=== PATIENT | male | born 1940 | race Caucasian/White ===

== ENCOUNTER 2020-06-18 07:03 | Outpatient (CLI) | payer MEDICARE, SELFPAY ==
[2020-06-18 07:46] LABS: Alanine Aminotransferase 21 U/L (4-50); Albumin Level 4.4 g/dL (3.5-5.1); Alkaline Phosphatase 71 U/L (38-126); Anion Gap 10 mmol/L (8-16); Aspartate Amino Transferase 27 U/L (17-59); Bilirubin,Total 0.3 mg/dL (0.2-1.3); Blood Urea Nitrogen 19 mg/dL (9-20); Carbon Dioxide 25 mmol/L (22-30); Chloride 106 mmol/L (98-107); Cholesterol 142 mg/dL (0-200); Estimated Glomerular Filt Rate > 60; Glucose 122 mg/dL (75-110); HDL Direct 80 mg/dL; Sodium 141 mmol/L (137-145); Triglycerides 67 mg/dL (<150)
[2020-06-18 07:53] LABS: Basophils Percent Auto 0.5 % (0.2-1.2); Eosinophils Absolute Auto 0.5 K/mm3 (0-0.3); Eosinophils Percent Auto 5.3 % (0-4.4); Hematocrit 43.2 % (42.0-52.0); Hemoglobin 14.1 g/dL (14.0-18.0); Immature Granulocyte Absolute 0.03 K/mm3 (0.00-0.031); Immature Granulocyte Percent A 0.3 % (0-0.5); Lymphocytes Absolute Auto 1.98 K/mm3 (0.9-3.2); Lymphocytes Percent Auto 22.4 % (18.3-44.2); Mean Corpuscular HGB Conc 32.6 g/dl (32-36); Mean Corpuscular Hemoglobin 34.6 pg (26-34); Mean Corpuscular Volume 105.9 fl (80-100); Mean Platelet Volume 10.8 fl (7.4-10.4); Monocytes Absolute Auto 0.8 K/mm3 (0.1-0.6); Monocytes Percent Auto 8.7 % (2.6-8.5); Neutrophils Absolute Auto 5.5 K/mm3 (1.3-6.7); Neutrophils Percent Auto 62.8 % (45.5-73.1); Platelet Count Result 267 k/mm3 (150-375); Red Blood Count 4.08 M/mm3 (4.6-6.20); Red Cell Distribution Width 13.6 % (11.5-14.5); White Blood Count 8.8 K/mm3 (4.5-10.0)
[2020-06-18 07:57] LABS: LDL Cholesterol Direct 52 mg/dL
== END 2020-06-18 07:04 | disposition home or self-care (01) ==
PROVIDERS: PCP Internal Medicine; Visit Provider Nurse Practitioner
DX: M81.0 Age-related osteoporosis without current pathological fracture (principal); D64.9 Anemia, unspecified; Z13.6 Encounter for screening for cardiovascular disorders; E03.9 Hypothyroidism, unspecified
CPT/HCPCS: 36415; 80053; 80061; 82306; 84443; 85025

== ENCOUNTER 2020-11-20 04:56 | Emergency (ER) | payer MEDICARE, SELFPAY ==
[2020-11-20] VITALS (8 sets, daily range): BP systolic 120–164; BP diastolic 83–98; PULSE 90–108; RESP 16–18; TEMP 36.6; O2SAT 94–100
--- NOTE | ~2020-11-20 | CT_ITS ---
EXAMINATION: CT thoracic lumbar wo con DATE: 11/20/2020 05:44 INDICATION: Back pain TECHNIQUE: Computed tomography (CT) of the thoracic and lumbar spine was performed without intravenou s contrast. The dose-length product was 113.66 mGy-cm. Automated exposure control and iterative recon struction technique were employed. COMPARISON: CT dated 03/03/2019 FINDINGS: There is a chronic appearing superior endplate compression fracture of T11 which has progre ssed since prior study. There is an acute burst fracture of T12 with mild loss of vertebral body heig ht. No retropulsion. Mild paravertebral hematoma. Mild thoracic spondylosis. No other fractures. Ther e is atherosclerosis. There is nonobstructing left renal stone. IMPRESSION: 1. Acute burst fracture of T12 with mild loss of vertebral body height. 2: Chronic appearing superior endplate compression fracture of T11. Reviewed, dictated and finalized at location A. OR SOFTWARE ANALYST
--- NOTE | 2020-11-20 05:03 | ED.BACK ---
HPI - Back Pain/Injury General Chief Complaint: Back Pain/Injury <Gabriel Restrepo MD - Last Filed: 11/20/20 07:01> Stated Complaint: back pain <Gabriel Restrepo MD - Last Filed: 11/20/20 07:01> Time Seen by Provider: 11/20/20 05:03 <Gabriel Restrepo MD - Last Filed: 11/20/20 07:01> History of Present Illness HPI Narrative: Low back pain for the past 2 days. It started when he was moving a bed. He stood up and felt his back tighten up instantly. The pain was tolerable that day, but worse the next morning and he was not able to sleep at all last night due to the pain. He also report urinary frequency. No numbness, weakness, dysuria, incontinence. He was previously on high doses steroids and was told that it had weakened the bones in his spine. <Gabriel Restrepo MD - Last Filed: 11/20/20 07:01> Related Data Home Medications: Home Medications Medication Instructions Recorded Confirmed multivitamin 1 tablet PO DAILY 06/16/20 08/26/20 <Gabriel Restrepo MD - Last Filed: 11/20/20 07:01> Allergies/Adverse Reactions: Allergies Allergy/AdvReac Type Severity Reaction Status Date / Time No Known Allergies Allergy Verified 08/26/20 10:59 <Gabriel Restrepo MD - Last Filed: 11/20/20 07:01> Review of Systems Review of Systems: All systems reviewed & are unremarkable except as noted in HPI and below <Gabriel Restrepo MD - Last Filed: 11/20/20 07:01> Constitutional: Constitutional: Denies chills, Denies fever(s) and Denies weakness <Gabriel Restrepo MD - Last Filed: 11/20/20 07:01> Cardiovascular: Cardiovascular: Denies chest pain <Gabriel Restrepo MD - Last Filed: 11/20/20 07:01> Respiratory: Respiratory: Denies dyspnea <Gabriel Restrepo MD - Last Filed: 11/20/20 07:01> Gastrointestinal: Gastrointestinal: Denies abdominal pain, Denies nausea and Denies vomiting <Gabriel Restrepo MD - Last Filed: 11/20/20 07:01> Genitourinary: Genitourinary: Denies hematuria, Denies dysuria and Reports urinary frequency <Gabriel Restrepo MD - Last Filed: 11/20/20 07:01> Neurologic: Denies dizziness, Denies numbness and Denies weakness <Gabriel Restrepo MD - Last Filed: 11/20/20 07:01> [facility] Past Medical History Medical History: Medical History (Updated 11/20/20 @ 09:56 by Sylvester Chase DO) Arthritis Asthma Chronic diarrhea Closed T12 spinal fracture Colitis Collagenous colitis Constipation Osteoporosis <Gabriel Restrepo MD - Last Filed: 11/20/20 07:01> Surgical History Surgical History: Surgical History Dupuytren's contracture of both hands H/O right knee surgery Hx of appendectomy <Gabriel Restrepo MD - Last Filed: 11/20/20 07:01> Family History Family History: Family History Sibling Cerebrovascular accident Patient's sister is in good health Patient's brother is Diabetes mellitus Mother Patient's mother is Father Patient's father is Family history of aortic aneurysm, Onset Age: 86 <Gabriel Restrepo MD - Last Filed: 11/20/20 07:01> Social History Social History: Social History Smoking status: Former smoker Smoking end date: 11/05/84 Alcohol intake: current <Gabriel Restrepo MD - Last Filed: 11/20/20 07:01> Exam Const: General: no acute distress and alert <Gabriel Restrepo MD - Last Filed: 11/20/20 07:01> Nutritional Appearance: thin <Gabriel Restrepo MD - Last Filed: 11/20/20 07:01> Orientation/consciousness: patient oriented x3 <Gabriel Restrepo MD - Last Filed: 11/20/20 07:01> HENMT: Head: normal to inspection <Gabriel Restrepo MD - Last Filed: 11/20/20 07:01> Neck: Neck: normal visual inspection <Gabriel Restrepo MD - Last Filed:
[2020-11-20] MEDS: diazePAM INJ (*CRX) 10 MG/2 ML SYRINGE 5 MG IM (05:11)
[2020-11-20 06:31] LABS: Add Urine Microscopic? YES; Appearance Urine Clear (Clear); Bilirubin Urine Negative (Negative); Blood Urine 1+ (Negative); Color Urine Yellow (Yellow); Glucose Urine UA Negative (Negative); Ketones Urine 1+ mg/dL (Negative); Leukocyte Esterase Ur Negative LEU/UL (Negative); Nitrate Urine Negative (Negative); Protein Urine Negative (Negative); Specific Grav Ur 1.017 (1.001-1.035); Urobilinogen Urine Negative mg/dL (<2.0); WBC Urine 0-3 /hpf
[2020-11-20] MEDS: MORPHINE SULFATE (*CRX) 2 MG/ML INJ IV PUSH ×2 (06:58→08:57)
--- NOTE | 2020-11-20 07:32 | PC.NURSE ---
Spoke with patients Zarina at [phone], states she wants to come visit her . Advised to wear mask on entry to ED.
== END 2020-11-20 10:21 | disposition home or self-care (01) ==
PROVIDERS: Emergency Medicine; Emergency Provider Emergency Medicine; PCP Internal Medicine
DX: S22.081A Stable burst fracture of T11-T12 vertebra, initial encounter for closed fracture (principal); M19.90 Unspecified osteoarthritis, unspecified site; J45.909 Unspecified asthma, uncomplicated; M81.0 Age-related osteoporosis without current pathological fracture; Z87.891 Personal history of nicotine dependence; X50.0XXA Overexertion from strenuous movement or load, initial encounter
CPT/HCPCS: 72128; 72131; 81001; 96372; 96374; 96376; 99284; J2270; J3360

== ENCOUNTER 2021-01-12 06:58 | Outpatient (CLI) | payer MEDICARE, SELFPAY ==
[2021-01-12 07:30] LABS: Basophils Percent Auto 0.3 % (0.2-1.2); Eosinophils Absolute Auto 0.1 K/mm3 (0-0.3); Hemoglobin 13.3 g/dL (14.0-18.0); Immature Granulocyte Absolute 0.04 K/mm3 (0.00-0.031); Immature Granulocyte Percent A 0.4 % (0-0.5); Lymphocytes Percent Auto 17.2 % (18.3-44.2); Mean Corpuscular HGB Conc 31.7 g/dl (32-36); Mean Corpuscular Hemoglobin 33.2 pg (26-34); Mean Corpuscular Volume 104.7 fl (80-100); Mean Platelet Volume 10.5 fl (7.4-10.4); Monocytes Absolute Auto 0.9 K/mm3 (0.1-0.6); Neutrophils Absolute Auto 7.1 K/mm3 (1.3-6.7); Neutrophils Percent Auto 72.1 % (45.5-73.1); Platelet Count Result 296 k/mm3 (150-375); Red Blood Count 4.01 M/mm3 (4.6-6.20); Red Cell Distribution Width 15.9 % (11.5-14.5); White Blood Count 9.9 K/mm3 (4.5-10.0)
[2021-01-12 07:37] LABS: Hemoglobin A1C 4.8 % (<5.7)
[2021-01-12 07:43] LABS: Potassium 3.9 mmol/L (3.4-5.0)
[2021-01-12 07:44] LABS: Alanine Aminotransferase 13 U/L (4-50); Albumin Level 3.9 g/dL (3.5-5.1); Alkaline Phosphatase 97 U/L (38-126); Anion Gap 7 mmol/L (8-16); Aspartate Amino Transferase 22 U/L (17-59); Bilirubin,Total 0.5 mg/dL (0.2-1.3); Blood Urea Nitrogen 15 mg/dL (9-20); Calcium 8.7 mg/dL (8.4-10.2); Carbon Dioxide 27 mmol/L (22-30); Chloride 105 mmol/L (98-107); Cholesterol 170 mg/dL (0-200); Estimated Glomerular Filt Rate > 60; Glucose 104 mg/dL (75-110); HDL Direct 79 mg/dL; Sodium 139 mmol/L (137-145); Triglycerides 73 mg/dL (<150)
[2021-01-12 07:54] LABS: LDL Cholesterol Direct 67 mg/dL
[2021-01-12 08:06] LABS: Vitamin D 25 Hydroxy 29.6 ng/mL
== END 2021-01-12 06:59 | disposition home or self-care (01) ==
PROVIDERS: PCP Internal Medicine; Visit Provider Internal Medicine
DX: Z13.6 Encounter for screening for cardiovascular disorders (principal); D64.9 Anemia, unspecified; E03.9 Hypothyroidism, unspecified; M81.0 Age-related osteoporosis without current pathological fracture; R73.02 Impaired glucose tolerance (oral)
CPT/HCPCS: 36415; 80053; 80061; 82306; 83036; 84443; 85025

== ENCOUNTER 2021-01-18 10:20 | Outpatient (CLI) | payer MEDICARE, SELFPAY ==
--- NOTE | ~2021-01-18 | CT_ITS ---
EXAMINATION: CT abdomen wo/w con DATE: 01/18/2021 10:49 INDICATION: Renal mass seen on MRI. TECHNIQUE: Computed tomography (CT) of the abdomen was performed without and with 100 mL Omnipaque-35 0 intravenous contrast. Automated exposure control and iterative reconstruction technique were employ ed. The dose-length product was 304.13 mGy-cm. COMPARISON: CT dated 11/16/2018 FINDINGS: Chronic elevation of the left hemidiaphragm. Mild atelectasis chronic mild interstitial lung disease at the dependent periphery of the bilateral lower lobes. Heart size is normal. No pericardial or pleu ral effusion. Atherosclerotic coronary artery calcification. Liver, gallbladder, spleen, pancreas and bilateral adrenal glands are normal. Nonobstructing 3 mm stone at the upper pole of the left kidney and 2 mm stone at the lower pole of the right kidney. 3.6 x 2.3 cm parapelvic cyst at the right renal hilum. Bilateral kidneys are otherwise unremarkable with no suspicious renal lesions identified or h ydronephrosis. The visualized portions of the bowels are unremarkable with no abnormal wall thickenin g or obstruction. No pathologically enlarged abdominal lymphadenopathy. Chronic appearing T11 and T12 burst fractures which are new since the prior study with 50% anterior vertebral body height loss at T11 and negligible retropulsion and 25% anterior vertebral body height loss with 3 mm retropulsion at T12. There has been a prior vertebroplasty at T12. IMPRESSION: 1. Bilateral nonobstructing nephrolithiasis. 2. Unchanged 3.6 cm parapelvic cyst at the right renal hilum. No other renal masses identified. Recom mend correlation with prior outside institution MRI reportedly demonstrating a renal mass which is no t available for comparison. Reviewed, dictated and finalized at location B. IMPRESSION: 1. Bilateral nonobstructing nephrolithiasis. 2. Unchanged 3.6 cm parapelvic cyst at the right renal hilum. No other renal ma sses identified. Recommend correlation with prior outside institution MRI repor tedly demonstrating a renal mass which is not available for comparison.
== END 2021-01-18 10:21 | disposition home or self-care (01) ==
PROVIDERS: PCP Internal Medicine; Visit Provider Internal Medicine
DX: N28.89 Other specified disorders of kidney and ureter (principal); N20.0 Calculus of kidney
CPT/HCPCS: 74170; Q9967

== ENCOUNTER 2021-02-21 07:38 | Inpatient (IN) | payer MEDICARE, SELFPAY ==
[2021-02-21] VITALS (20 sets, daily range): BP systolic 129–172; BP diastolic 74–88; PULSE 89–128; RESP 16–32; TEMP 36.3–36.6; O2SAT 99–100; BMI 13.7
--- NOTE | ~2021-02-21 | XR_ITS ---
XR chest 1V portable DATE: 02/21/2021 09:31 INDICATION: Weakness TECHNIQUE: Portable supine AP chest on 02/21/2021 0919 hours COMPARISON: 12/19/2018 AP and lateral chest FINDINGS: Normal heart size. Aortic arch calcification. Mild aortic tortuosity. No hilar or mediastinal enlargement is evident. Chronic mild elevation left leaf of diaphragm, also evident on 12/19/2018. There is minimal infiltrate or atelectasis in the right and left mid lung field and at the left lung base. The lungs are otherwise clear. Mild bilateral apical capping. Diffuse osteopenia. There is fracture deformity of T11 and T12, with vertebroplasty at T12. IMPRESSION: Minimal infiltrate or atelectasis in the mid lung zones and left lung base Fracture deformities of T11 and T12, vertebroplasty at T12 Diffuse osteopenia Reviewed, dictated and finalized at location A. IMPRESSION: Minimal infiltrate or atelectasis in the mid lung zones and left roxann ng base Fracture deformities of T11 and T12, vertebroplasty at T12 Diffuse osteopenia
--- NOTE | ~2021-02-21 | CT_ITS ---
EXAMINATION: CT abd pelvis lumbar w con DATE: 02/21/2021 09:06 INDICATION: Abdominal pain and weight loss. Recent back surgery. TECHNIQUE: Computed tomography (CT) of the abdomen, pelvis and lumbar spine was performed with 100 mL Omnipaque-350 intravenous contrast. Automated exposure control and iterative reconstruction techniqu e were employed. The dose-length product was 199.71 mGy-cm. COMPARISON: 01/18/2021 FINDINGS: Abdomen and pelvis: Chronic elevation of the left hemidiaphragm. Chronic irregular reticular opacities with honeycombing versus mild emphysema at the dependent periphery of the bilateral lower lobes consistent with chronic interstitial lung disease in either usual interstitial pneumonia (UIP) or nonspecific interstitial p neumonia (NSIP) pattern. Heart size is normal. No pericardial or pleural effusion. Liver, gallbladder , spleen and bilateral adrenal glands are normal. Small parenchymal calcification at the tail of the pancreas consistent with likely sequela of chronic pancreatitis. Nonobstructing 3 mm stone at the upp er pole of the left kidney and 2 mm nonobstructing stone at the lower pole of the right kidney. 3.5 c m right parapelvic cyst. No hydronephrosis. Bladder is normal. Diffuse edematous wall thickening of the colon with hyperemia of the mucosa and vasa recta and some h aziness to the perirectal fat consistent with pancolitis. No pneumatosis or portal venous gas. No bow el obstruction. The appendix is not visualized. No more focal pericecal inflammatory change to sugges t acute appendicitis. No abscess or free intraperitoneal gas or fluid. Multiple normal-sized lymph no lily more notable for number than size in the perirectal region and along the ileocolic chain. There i s scattered calcified atherosclerosis without hemodynamically significant stenosis of the aorta and m any of the other arteries. Lumbar spine: Stable appearance of a T11 compression fracture with 50% anterior vertebral body height loss at T11 a nd of a T12 burst fracture with 25% anterior vertebral body height loss, 3 mm retropulsion and change of prior vertebroplasty. This is also unchanged mild central canal stenosis at the level of the supe rior endplate of T12. Normal alignment of the more caudal lumbar spine. Subtle acute compression frac ture of L1 with shallow concavity along the left side of the superior endplate which is new since 01/03. Remaining lumbar vertebral body heights are normal. Lumbar disc heights are normal. There is mild ballooning of the T11-T12 and T12-L1 disc spaces. There are disc bulges from L1-L2 through L5-S1 resulting in multilevel mild central canal stenosis greatest at L2-L3 and L3-L4. Moderate facet oste oarthritis on the right at L1-L2. Otherwise mild facet osteoarthritis throughout the remainder of the lumbar spine. This along with the disc bulge contribute to multilevel mild lateral neural from steno sis throughout the lumbar spine. IMPRESSION: 1. Pancolitis which could be infectious, inflammatory or less likely ischemic in etiology. 2. L1 superior endplate compression fracture with minimal loss of height on the left which is new sin ce 01/18/2021. 3. Stable appearance of T11 compression fracture and T12 burst fracture, the latter with change of pr ior vertebroplasty. 4. Bilateral nonobstructing nephrolithiasis. Reviewed, dictated and finalized at location A. IMPRESSION: 1. Pancolitis which could be infectious, inflammatory or less likely ischemic i n etiology. 2. L1 superior endplate compression fracture with minimal loss of height on the left which is new since 01/18/2021. 3. Stable appearance of T11 compression fracture and T12 burst fracture, the la tter with change of prior vertebroplasty. 4. Bilateral nonobstructing nephrolit
--- NOTE | 2021-02-21 07:54 | ECG_ITS ---
Measurements Intervals [place] Rate: 107 P: 75 OR: 138 QRS: -7 QRSD: 109 T: 61 QT: 337 QTc: 451 Interpretive Statements SINUS TACHYCARDIA BASELINE ARTIFACT- I, II, III, AVR, AVL, AVF, V1-V6 ABNORMAL ECG Electronically Signed On 02-21-2021 12:13:25 CDT by Maximiliano Nuñez D.O.
--- NOTE | 2021-02-21 07:58 | ED.GENADULT ---
HPI - General Adult General Chief complaint: Weakness Stated complaint: weakness Time Seen by Provider: 02/21/21 07:56 Source: patient and EMS Mode of arrival: EMS Limitations: no limitations History of Present Illness HPI narrative: Patient is a 80-year-old male with a history of chronic diarrhea/colitis, arthritis, anemia, recent kyphoplasty secondary to burst fracture who presents for evaluation of diarrhea. Patient states that he has had acute on chronic worsening of his diarrhea over the past several days, now feeling increasingly weak. He reports he has been able to ambulate without difficulty. He denies any focal numbness or weakness. He states he is unable to walk long distances due to feeling weak. He denies fever, chills, rhinorrhea, loss of sense of taste or smell. No history of Covid vaccination or history of Covid in this patient. No recent sick contacts. Patient follows with Dr. Quezada with GI. No recent falls or injuries. Related Data Home Medications Medication Instructions Recorded Confirmed multivitamin 1 tablet PO DAILY 06/16/20 01/13/21 coenzyme Q10 100 mg tablet 100 mg PO DAILY 01/13/21 01/13/21 Allergies Allergy/AdvReac Type Severity Reaction Status Date / Time No Known Allergies Allergy Verified 02/21/21 07:52 Review of Systems Review of Systems: Narrative: CONSTITUTIONAL: Denies fever, chills, or sweats. EYES: Denies visual changes, redness, or discharge. ENT: Denies rhinorrhea, congestion, sore throat, or otalgia. CARDIOVASCULAR: Denies chest pain, palpitations, or edema. RESPIRATORY: Denies cough or dyspnea. GASTROINTESTINAL: Denies abdominal pain, nausea, vomiting, reports watery diarrhea without blood or mucus GENITOURINARY: Denies dysuria or hematuria. SKIN: Denies rash or itching. MUSCULOSKELETAL: Reports chronic lower back pain without joint pain or myalgia. NEUROLOGIC: Denies headache, numbness, reports feeling diffusely weak PMFSH Past Medical History Medical History Arthritis Asthma Chronic diarrhea Closed T12 spinal fracture Colitis Collagenous colitis Constipation Herpes zoster without complication Osteoporosis Postherpetic neuralgia Surgical History Surgical History Dupuytren's contracture of both hands H/O right knee surgery Hx of appendectomy Family History Family History Sibling Cerebrovascular accident Patient's sister is in good health Patient's brother is Diabetes mellitus Mother Patient's mother is Father Patient's father is Family history of aortic aneurysm, Onset Age: 86 Social History Social History Smoking status: Former smoker Smoking end date: 11/05/84 Alcohol intake: current Exam Narrative: Exam Narrative: GENERAL: Awake, alert, conversant HEAD: Normocephalic, atraumatic. EYES: PERRLA and EOMI. ENT: Nares clear, no rhinorrhea or epistaxis. Mucous membranes dry. NECK: Supple. CHEST: No respiratory distress, breathing even and non labored HEART: Tachycardic rate, sinus rhythm ABDOMEN:Non distended, no severe tenderness throughout, non rigid, no guarding Thorax: Normal, incision site is c/d/i no sutures present EXTREMITIES: Normal range of motion. No edema. SKIN: Thin, warm, dry, no rash. NEURO:No focal deficits. Alert and oriented x3 Course Vital Signs Vital signs: Vital Signs Temperature 36.3 C L 02/21/21 07:36 Pulse Rate 107 H 02/21/21 07:36 Respiratory Rate 21 H 02/21/21 07:36 Blood Pressure 165/88 H 02/21/21 07:36 Pulse Oximetry 99 02/21/21 07:36 Temperature 36.3 C L 02/21/21 07:36 Pulse Rate 93 02/21/21 09:38 Respiratory Rate 19 02/21/21 09:38 Blood Pressure 137/74 02/21/21 09:38 Pulse Oximetry 100 02/21/21 09:38
--- NOTE | 2021-02-21 08:03 | PC.NURSE ---
Pt unable to provide u/a at this time, declined straight cath, states he needs time to try. Given urinal. Fluids infusing.
[2021-02-21] MEDS: SODIUM CHLORIDE 0.9% IV 1,000 ML 999 ML IV CONT (08:04)
[2021-02-21 08:17] LABS: Basophils Absolute Auto 0.1 K/mm3 (0.0-0.1); Basophils Percent Auto 0.5 % (0.2-1.2); Eosinophils Absolute Auto 0.2 K/mm3 (0-0.3); Eosinophils Percent Auto 2.4 % (0-4.4); Hematocrit 38.9 % (42.0-52.0); Hemoglobin 12.9 g/dL (14.0-18.0); Immature Granulocyte Absolute 0.03 K/mm3 (0.00-0.031); Immature Granulocyte Percent A 0.3 % (0-0.5); Lymphocytes Absolute Auto 1.31 K/mm3 (0.9-3.2); Lymphocytes Percent Auto 13.1 % (18.3-44.2); Mean Corpuscular HGB Conc 33.2 g/dl (32-36); Mean Corpuscular Hemoglobin 34.7 pg (26-34); Mean Corpuscular Volume 104.6 fl (80-100); Mean Platelet Volume 10.7 fl (7.4-10.4); Monocytes Absolute Auto 1.4 K/mm3 (0.1-0.6); Monocytes Percent Auto 13.6 % (2.6-8.5); Neutrophils Percent Auto 70.1 % (45.5-73.1); Platelet Count Result 349 k/mm3 (150-375); Red Blood Count 3.72 M/mm3 (4.6-6.20); Red Cell Distribution Width 13.2 % (11.5-14.5)
[2021-02-21 08:26] LABS: Lactic Acid Reflex 1.3 mmol/L (0.7-2.1)
[2021-02-21 08:27] LABS: Alanine Aminotransferase 13 U/L (4-50); Albumin Level 3.7 g/dL (3.5-5.1); Alkaline Phosphatase 124 U/L (38-126); Anion Gap 5 mmol/L (8-16); Aspartate Amino Transferase 23 U/L (17-59); Bilirubin,Total 0.3 mg/dL (0.2-1.3); Blood Urea Nitrogen 20 mg/dL (9-20); Calcium 8.6 mg/dL (8.4-10.2); Carbon Dioxide 29 mmol/L (22-30); Chloride 102 mmol/L (98-107); Estimated CRCL calculation 46 ml/min; Estimated Glomerular Filt Rate > 60; Glucose 101 mg/dL (75-110); Lipase 184 U/L (23-300); Potassium 3.9 mmol/L (3.4-5.0); Sodium 136 mmol/L (137-145)
--- NOTE | 2021-02-21 08:52 | PC.NURSE ---
Pt to CT scan via stretcher.
--- NOTE | 2021-02-21 08:53 | PC.NURSE ---
Pt states he is willing to have straight cath due to unable to urinate. Order placed.
--- NOTE | 2021-02-21 09:20 | PC.NURSE ---
Pt provided clean catch urine, cancelled straight cath.
[2021-02-21 09:36] LABS: Add Urine Microscopic? NO; Appearance Urine Clear (Clear); Bilirubin Urine Negative (Negative); Blood Urine Negative (Negative); Color Urine Straw (Yellow); Glucose Urine UA Negative (Negative); Ketones Urine Negative (Negative); Leukocyte Esterase Ur Negative LEU/UL (Negative); Nitrate Urine Negative (Negative); Protein Urine Negative (Negative); Specific Grav Ur 1.014 (1.001-1.035); Urobilinogen Urine Negative mg/dL (<2.0)
[2021-02-21] MEDS: metroNIDAZOLE 500 MG/ISO 100ML 500 MG/100 ML BAG 100 MG IVPB ×2 (10:04→22:59)
[2021-02-21] MEDS: methylPREDNISolone SOD SUCC 40 MG VIAL IV PUSH ×3 (10:05→21:14)
[2021-02-21 10:16] LABS: Creatine Kinase < 20 U/L (55-170)
--- NOTE | 2021-02-21 10:16 | PC.NURSE ---
1000 - Patient had large liquid bowel movement, reports feeling better after BM. Patient assisted back into bed. Patient updated on plan of care. Call light in reach.
--- NOTE | 2021-02-21 10:54 | PC.NURSE ---
Report called to floor RN, patient to go to room 328.
--- NOTE | 2021-02-21 11:58 | ADMGEN ---
This patient, Anurag Marie, was admitted to 3 [facility] Surg Room 328-01 @ 1110. Patient/family oriented to hospital policies and general routines including ID bracelet, bed and alarms, visiting hours, pain management, procedures, bathroom and other care routines, personal items, smoking policy, room service/diet, and visiting hours. Information on how to activate the Rapid Response Team has been discussed. Patient/Family are encouraged to report perceived risks to care and to ask questions if they do not understand what they are told or what they should do.
--- NOTE | 2021-02-21 14:45 | PM.IMHP ---
H&P: HPI History of Present Illness Date/Time: 02/21/21 14:45 Chief Complaint: Weakness. Narrative: This is a 80-year-old male with collagenous and lymphocytic colitis, anemia, and relatively recent T12 burst fracture status post kyphoplasty who presented to the emergency department earlier today via EMS from home with complaints of weakness. He has chronic diarrhea which has become more frequent over the last several days and it is now to the point where he is just exhausted and weak with difficulties ambulating due to the weakness. He does take Imodium which seems to help here and there but it has not provided much benefit over the last several days. He has not noticed blood or mucus in the stool and denies nausea, vomiting, and abdominal pain. His appetite is just not been good for long time and he drinks Boost but has a difficult time keeping weight on. He has not had fever, chills, or sweats. No cold or flu symptoms. He denies significant cough and shortness of breath. No exposure to those positive for COVID-19. No recent travel, sick contacts, or antibiotic use. Review of Systems Review of Systems: Narrative: Twelve systems were reviewed with pertinent positives and negatives as per HPI. He denies sinus congestion, rhinorrhea, otalgia, and odynophagia. Occasional lightheadedness. No syncope or near syncope. He denies vertigo. No focal weakness or paresthesias. No history of malignancy. He had been having issues with back pain and was found to have a burst fracture for which he underwent vertebroplasty or kyphoplasty several months ago with benefit. Imaging today shows new superior endplate fracture at L1 of which he is asymptomatic. He denies any recent falls and injury. Except as documented, all other systems were reviewed and are negative. [facility] Past Medical History Medical History (Updated 02/21/21 @ 22:30 by Rajwinder Ramirez PA-C) Arthritis Asthma Bilateral nephrolithiasis Nonobstructing on CT dated 02/21/2021. Chronic anemia Chronic diarrhea Closed T12 spinal fracture Status post kyphoplasty. Collagenous colitis Followed by Dr. León. Esophageal stricture Status post dilatation x3. Gastroesophageal reflux disease Hiatal hernia History of Clostridium difficile colitis (~05/2018) Osteoporosis Parapelvic renal cyst Unchanged 3.6 cm parapelvic cyst at the right renal hilum noted on CT dated 02/21/2021 Postherpetic neuralgia Surgical History Surgical History (Updated 02/21/21 @ 14:47 by Rajwinder Ramirez PA-C) Dupuytren's contracture of both hands History of appendectomy History of arthroscopy of right knee History of kyphoplasty Family History Family History Sibling Cerebrovascular accident Patient's sister is in good health Patient's brother is Diabetes mellitus Mother Patient's mother is Father Patient's father is Family history of aortic aneurysm, Onset Age: 86 Social History Social History (Updated 02/21/21 @ 14:48 by Rajwinder Ramirez PA-C) Social History: Surrogate decision maker: Zarina Marie, . Code status: Full code. Smoking packs per day: 2 Smoking cigarettes per day: 40.0 Years smoked: 26 Smoking pack-years: 52.00 Smoking status: Former smoker Tobacco type: cigarettes Smoking end date: 11/05/84 Alcohol intake: former Drinks per week: 0 Alcohol use details: No alcohol since November 2016. Substance use: never Additional living arrangements comments: Patient lives in [place] with his . Additional occupation/education comments: Retired. Gender identity (if verbalized by the patient): Male Spiritual care concerns: No Meds Home Medications and Allergies Home Medications Medication Instructions Recorded Confirmed Type multivitamin 1 tablet PO DAILY 06/16/20 02/21/21 History alendronate 35
[2021-02-21] MEDS: SODIUM CHLORIDE 0.9% IV 1,000 ML 125 ML IV CONT (14:49)
--- NOTE | 2021-02-21 15:18 | PCNSR ---
On 02/21/21, the student,Mercedez Villaseñor, provided care and completed [facility] documentation on this patient. I have reviewed the student's documentation and agree with the findings.
[2021-02-21 15:54] LABS: Immature Reticulocyte Fraction 11.5 % (3.0-15.9); Reticulocyte Hemoglobin Conten 35.4 pg (28.2-35.7); Reticulocyte Percent 1.26 % (0.7-4.3); Reticulocytes Absolute 0.05 B/L (32.2-175.7)
[2021-02-21 16:30] LABS: Iron 43 ug/dL (49-181)
[2021-02-21 16:41] LABS: Percent Iron Saturation 19 % (20-50)
[2021-02-21 17:03] LABS: Thyroid Stimulating Hormone Reflex 0.923 uIU/mL (0.465-4.68)
[2021-02-21 19:04] LABS: SARS-CoV-2 RNA PCR Negative
[2021-02-21] MEDS: ACETAMINOPHEN 325 MG TABLET 650 MG PO (21:29)
[2021-02-22] MEDS: SODIUM CHLORIDE 0.9% IV 1,000 ML 125 ML IV CONT (02:01)
[2021-02-22] MEDS: methylPREDNISolone SOD SUCC 40 MG VIAL IV PUSH ×3 (05:40→21:10)
[2021-02-22] MEDS: metroNIDAZOLE 500 MG/ISO 100ML 500 MG/100 ML BAG 100 MG IVPB ×3 (05:40→21:10)
[2021-02-22 05:54] LABS: Hematocrit 34.8 % (42.0-52.0); Hemoglobin 11.5 g/dL (14.0-18.0); Mean Corpuscular Hemoglobin 33.5 pg (26-34); Mean Corpuscular Volume 101.5 fl (80-100); Mean Platelet Volume 10.3 fl (7.4-10.4); Platelet Count Result 277 k/mm3 (150-375); Red Blood Count 3.43 M/mm3 (4.6-6.20); Red Cell Distribution Width 13.2 % (11.5-14.5); White Blood Count 7.9 K/mm3 (4.5-10.0)
[2021-02-22 06:00] VITALS: BP 160/80; PULSE 100; RESP 18; TEMP 36.6; O2SAT 100
[2021-02-22 06:44] LABS: Anion Gap 5 mmol/L (8-16); Blood Urea Nitrogen 14 mg/dL (9-20); Calcium 7.8 mg/dL (8.4-10.2); Carbon Dioxide 24 mmol/L (22-30); Chloride 106 mmol/L (98-107); Estimated CRCL calculation 65 ml/min; Estimated Glomerular Filt Rate > 60; Glucose 123 mg/dL (75-110); Magnesium 1.7 mg/dL (1.6-2.3); Potassium 3.9 mmol/L (3.4-5.0); Sodium 135 mmol/L (137-145)
[2021-02-22] MEDS: ENOXAPARIN 40 MG/0.4 ML SYRINGE SUB-Q (08:31)
[2021-02-22] MEDS: MULTIVITAMINS THERAPEUTIC TAB (*BKC) 1 TABLET PO (08:31)
[2021-02-22] MEDS: DULoxetine HCL 20 MG CAPSULE.DR PO (08:31)
[2021-02-22 14:13] VITALS: BP 115/61; PULSE 98; RESP 18; TEMP 36.8; O2SAT 96
--- NOTE | 2021-02-22 15:15 | WPDGICN ---
Assessment and Plan Assessment and plan (1) Collagenous colitis: Code(s): K52.831 - Collagenous colitis Status: Acute Assessment and Plan: diagnosed 2018 after failed other medical treatment and he has done quite well with budesonide to the point that we lowered dose CT scan showed colitis, on iv steroids and flagyl, pending stool samples to rule out infection probably will need to increase dose of budesonide to 9mg again consider to repeat colonoscopy based on clinical course (2) Pancolitis: Code(s): K51.00 - Ulcerative (chronic) pancolitis without complications Status: Acute Assessment and Plan: medical treatment (3) Diarrhea: Qualifiers: Diarrhea type: unspecified type Qualified Code(s): R19.7 - Diarrhea, unspecified Code(s): R19.7 - Diarrhea, unspecified Status: Acute (4) Dehydration: Code(s): E86.0 - Dehydration Status: Acute Assessment and Plan: treated (5) Compression fracture: Status: Acute (6) Osteoporosis: Qualifiers: Osteoporosis type: unspecified Presence of current pathological fracture: unspecified Qualified Code(s): M81.0 - Age-related osteoporosis without current pathological fracture Code(s): M81.0 - Age-related osteoporosis without current pathological fracture Status: Acute Assessment and Plan: on treatment GI Consult Note Consult date/time: 02/22/21 15:15 Reason for consult: colitis HPI: Anurag Marie is a 80 year old male with history of osteoporosis on fosamax who I diagnosed with collagenous and lymphocytic colitis/ileitis when I performed colonoscopy 07/2019 because chronic diarrhea despite medical treatment (mesalamine, prednisone, etc), he also was dealing with weight loss and just feeling sick. I started him on 9mg budesonide with significant improvement of diarrhea actually he eventually became constipated and last time I saw him last year, recommended to lower to once a day (3 mg budesonide). He says that November hurt his back and found to have T12 burst fracture status post kyphoplasty at another hospital and since then had again problem with diarrhea, about 1 week ago increased budesonide to 9mg again but still with frequent diarrhea. He came to the emergency department via EMS from home with complaints of weakness. CT scan reviewed and showed pancolitis which could be infectious, inflammatory or less likely ischemic in etiology. L1 superior endplate compression fracture with minimal loss of height on the left which is new since 01/18/2021. Stable appearance of T11 compression fracture and T12 burst fracture, the latter with change of prior vertebroplasty. He was admitted to hospital, started on iv steroids and flagyl. Stool studies still pending. Review of Systems Constitutional: Constitutional: Reports weakness Eyes: Eyes: Denies blurry vision ENT: Reports Normal hearing present Cardiovascular: Cardiovascular: Denies chest pain Respiratory: Respiratory: Denies dyspnea Gastrointestinal: Gastrointestinal: Reports diarrhea Genitourinary: Genitourinary: Denies dysuria Musculoskeletal: Musculoskeletal: Reports back pain Integumentary/Breasts: Skin/Breast: Denies dry skin Neurologic: Reports system reviewed and no additional complaints, except as documented Psychiatric: Psychiatric: Reports no additional psychiatric complaints [facility] Past Medical History Medical History (Updated 02/21/21 @ 22:30 by Rajwinder Ramirez PA-C) Arthritis Asthma Bilateral nephrolithiasis Nonobstructing on CT dated 02/21/2021. Chronic anemia Chronic diarrhea Closed T12 spinal fracture Status post kyphoplasty. Collagenous colitis Followed by Dr. León. Esophageal stricture Status post dilatation x3. Gastroesophageal reflux disease Hiatal hernia History of Clostridium difficile colitis (~05/2018) Osteoporosis Parapelvic renal cyst Unchanged 3.6 cm parapelvic cyst at
--- NOTE | 2021-02-22 15:35 | PM.IMPN ---
Progress Note: A&P Assessment and Plan (1) Pancolitis: Code(s): K51.00 - Ulcerative (chronic) pancolitis without complications Status: Acute Assessment and Plan: He has been started on metronidazole and Solu-Medrol per Dr. León (Gastroenterology). His input is appreciated. (2) Generalized weakness: Code(s): R53.1 - Weakness Status: Acute Assessment and Plan: Secondary to above in addition to generalized deconditioning. PT/OT consulted. (3) Compression fracture: Status: Acute Assessment and Plan: New L1 superior endplate compression fracture noted on imaging today. (4) Chronic anemia: Code(s): D64.9 - Anemia, unspecified Status: Acute Assessment and Plan: Continue to monitor. (5) Parapelvic renal cyst: Code(s): N28.1 - Cyst of kidney, acquired Status: Acute Assessment and Plan: Stable (6) Underweight: Onset Date: 05/21/17 Code(s): R63.6 - Underweight Status: Acute Assessment and Plan: A longstanding issue (7) Person under investigation for COVID-19: Code(s): Z20.822 - Contact with and (suspected) exposure to COVID-19 Status: Ruled-out Assessment and Plan: Is negative Subjective Date/time seen: 02/22/21 15:35 Interval history: 80-year-old male with collagenous and lymphocytic colitis, anemia, and relatively recent T12 burst fracture status post kyphoplasty who presented to the emergency department earlier today via EMS from home with complaints of weakness. COVID negative, seen by GI, pt describes difficulty sleeping Review of Systems Review of Systems: All systems reviewed & are unremarkable except as noted in HPI and below Exam Narrative: Exam Narrative: General: Cachectic-appearing male HEENT: Bitemporal wasting. Neck: Supple. No JVD. Respiratory: Lungs are clear to auscultation bilaterally. Cardiovascular: Regular rate and rhythm with S1-S2. Gastrointestinal: Abdomen is soft and thin appearing Extremities: No cyanosis, clubbing, or edema. Radial and pedal pulses intact. Neurological: Alert. Cranial nerves 2-12 are grossly intact. No gross focal deficits to casual conversation. Psychiatric: Pleasant and cooperative with normal mood and affect. Objective Data Vital Signs Vital Signs: Vital Signs - 24 hr 02/21/21 16:00 02/21/21 22:00 02/22/21 06:00 Temperature 36.3 C L 36.6 C 36.6 C Pulse Rate 106 H 95 100 Respiratory Rate 16 18 18 Blood Pressure 131/86 172/86 H 160/80 H Pulse Oximetry 100 99 100 02/22/21 14:13 Temperature 36.8 C Pulse Rate 98 Respiratory Rate 18 Blood Pressure 115/61 Pulse Oximetry 96 Intake/Output Intake/Output: Intake & Output 02/19/21 02/20/21 02/21/21 02/22/21 23:59 23:59 23:59 23:59 Intake Total 2890 610 Output Total 200 300 Balance 2690 310 Meds/Results Medications: Active Medications Generic Name Dose Route Start Last Admin Trade Name Freq PRN Reason Stop Dose Admin Acetaminophen 650 mg 02/21/21 10:00 02/21/21 21:29 Acetaminophen 325 Mg Tablet PO 650 mg Q4H PRN Administration Mild Pain (1-3) or Fever Duloxetine HCl 20 mg 02/22/21 09:00 02/22/21 08:31 Duloxetine Hcl 20 Mg Capsule.Dr PO 20 mg DAILY LINNEA Administration Enoxaparin Sodium 40 mg 02/22/21 09:00 02/22/21 08:31 Enoxaparin 40 Mg/0.4 Ml Syringe SUB-Q 40 mg DAILY LINNEA Administration Sodium Chloride 1,000 mls @ 75 mls/hr 02/21/21 10:00 02/22/21 08:31 Normal Saline Iv IV CONT 75 mls/hr .[id number] LINNEA Infusion Metronidazole 500 mg in 100 mls @ 100 mls/hr 02/21/21 22:45 02/22/21 13:38 Flagyl 500 Mg/Iso Soln 100 Ml IVPB 100 mls/hr Q8HR LINNEA Administration Methylprednisolone Sodium Succinate 40 mg 02/21/21 14:00 02/22/21 13:36 Methylprednisolone Sod Succ 40 Mg Vial IV PUSH 40 mg Q8HR LINNEA Administration Multivitamins Therapeutic 1
[2021-02-22] MEDS: SODIUM CHLORIDE 0.9% IV 1,000 ML 75 ML IV CONT (17:22)
[2021-02-22 22:00] VITALS: BP 132/72; PULSE 85; RESP 16; TEMP 36.3; O2SAT 99
[2021-02-23] MEDS: metroNIDAZOLE 500 MG/ISO 100ML 500 MG/100 ML BAG 100 MG IVPB ×3 (05:03→19:50)
[2021-02-23] MEDS: methylPREDNISolone SOD SUCC 40 MG VIAL IV PUSH ×3 (05:04→20:35)
[2021-02-23 06:00] VITALS: BP 145/83; PULSE 99; RESP 16; TEMP 36.4; O2SAT 100
[2021-02-23 06:30] LABS: Hematocrit 34.2 % (42.0-52.0); Hemoglobin 11.5 g/dL (14.0-18.0); Mean Corpuscular HGB Conc 33.6 g/dl (32-36); Mean Corpuscular Volume 101.2 fl (80-100); Mean Platelet Volume 10.9 fl (7.4-10.4); Platelet Count Result 294 k/mm3 (150-375); Red Blood Count 3.38 M/mm3 (4.6-6.20); Red Cell Distribution Width 13.2 % (11.5-14.5); White Blood Count 11.5 K/mm3 (4.5-10.0)
[2021-02-23 06:43] LABS: Anion Gap 4 mmol/L (8-16); Blood Urea Nitrogen 20 mg/dL (9-20); Carbon Dioxide 27 mmol/L (22-30); Chloride 106 mmol/L (98-107); Estimated CRCL calculation 65 ml/min; Estimated Glomerular Filt Rate > 60; Glucose 128 mg/dL (75-110); Sodium 137 mmol/L (137-145)
[2021-02-23] MEDS: SODIUM CHLORIDE 0.9% IV 1,000 ML 75 ML IV CONT (08:59)
[2021-02-23] MEDS: ENOXAPARIN 40 MG/0.4 ML SYRINGE SUB-Q (09:01)
[2021-02-23] MEDS: MULTIVITAMINS THERAPEUTIC TAB (*BKC) 1 TABLET PO (09:01)
[2021-02-23] MEDS: DULoxetine HCL 20 MG CAPSULE.DR PO (09:01)
--- NOTE | 2021-02-23 12:23 | PM.IMPN ---
Progress Note: A&P Assessment and Plan (1) Pancolitis: Code(s): K51.00 - Ulcerative (chronic) pancolitis without complications Status: Acute Assessment and Plan: He has been started on metronidazole and Solu-Medrol per Dr. León (Gastroenterology). Pt will need scopes to investigate further later once infection has cleared. (2) Generalized weakness: Code(s): R53.1 - Weakness Status: Acute Assessment and Plan: Secondary to above in addition to generalized deconditioning. PT/OT consulted. (3) Compression fracture: Status: Acute Assessment and Plan: New L1 superior endplate compression fracture noted on imaging today. (4) Chronic anemia: Code(s): D64.9 - Anemia, unspecified Status: Acute Assessment and Plan: Continue to monitor. (5) Parapelvic renal cyst: Code(s): N28.1 - Cyst of kidney, acquired Status: Acute Assessment and Plan: Stable (6) Underweight: Onset Date: 05/21/17 Code(s): R63.6 - Underweight Status: Acute Assessment and Plan: A longstanding issue, malnournishment (7) Person under investigation for COVID-19: Code(s): Z20.822 - Contact with and (suspected) exposure to COVID-19 Status: Ruled-out Assessment and Plan: Is negative Subjective Date/time seen: 02/23/21 12:23 Interval history: 80-year-old male with collagenous and lymphocytic colitis, anemia, and relatively recent T12 burst fracture status post kyphoplasty who presented to the emergency department earlier today via EMS from home with complaints of weakness. COVID negative, seen by GI, pt describes difficulty sleeping. Pt having diarrhea for months denies any vomiting or abdominal pains. Adviced pt to drink more ensures and eat more looks malnourished Review of Systems Review of Systems: All systems reviewed & are unremarkable except as noted in HPI and below Exam Narrative: Exam Narrative: General: Cachectic-appearing male HEENT: Bitemporal wasting. Neck: Supple. No JVD. Respiratory: Lungs are clear to auscultation bilaterally. Cardiovascular: Regular rate and rhythm with S1-S2. Gastrointestinal: Abdomen is soft and thin appearing Extremities: No cyanosis, clubbing, or edema. Radial and pedal pulses intact. Neurological: Alert. Cranial nerves 2-12 are grossly intact. No gross focal deficits to casual conversation. Psychiatric: Pleasant and cooperative with normal mood and affect. Objective Data Vital Signs Vital Signs: Vital Signs - 24 hr 02/22/21 14:13 02/22/21 22:00 02/23/21 06:00 Temperature 36.8 C 36.3 C L 36.4 C Pulse Rate 98 85 99 Respiratory Rate 18 16 16 Blood Pressure 115/61 132/72 145/83 H Pulse Oximetry 96 99 100 Intake/Output Intake/Output: Intake & Output 02/20/21 02/21/21 02/22/21 02/23/21 23:59 23:59 23:59 23:59 Intake Total 2890 3235 1390 Output Total 200 700 500 Balance 2690 2535 890 Meds/Results Medications: Active Medications Generic Name Dose Route Start Last Admin Trade Name Freq PRN Reason Stop Dose Admin Acetaminophen 650 mg 02/21/21 10:00 02/21/21 21:29 Acetaminophen 325 Mg Tablet PO 650 mg Q4H PRN Administration Mild Pain (1-3) or Fever Duloxetine HCl 20 mg 02/22/21 09:00 02/23/21 09:01 Duloxetine Hcl 20 Mg Capsule.Dr PO 20 mg DAILY LINNEA Administration Enoxaparin Sodium 40 mg 02/22/21 09:00 02/23/21 09:01 Enoxaparin 40 Mg/0.4 Ml Syringe SUB-Q 40 mg DAILY LINNEA Administration Sodium Chloride 1,000 mls @ 75 mls/hr 02/21/21 10:00 02/23/21 08:59 Normal Saline Iv IV CONT 75 mls/hr .[id number] LINNEA Administration Metronidazole 500 mg in 100 mls @ 100 mls/hr 02/21/21 22:45 02/23/21 05:03 Flagyl 500 Mg/Iso Soln 100 Ml IVPB 100 mls/hr Q8HR LINNEA Administration Methylprednisolone Sodium Succinate 40 mg 02/21/21 14:00 02/23/21 05:04 Methylprednisol
[2021-02-23 14:00] VITALS: BP 93/56; PULSE 106; RESP 16; TEMP 36.4; O2SAT 99
--- NOTE | 2021-02-23 16:15 | WPDGIPROGNO ---
Progress Note: A&P Assessment and Plan (1) Pancolitis: Code(s): K51.00 - Ulcerative (chronic) pancolitis without complications Status: Acute Assessment and Plan: he is feeling better, eating more and less diarrhea probably he can go home tomorrow with budesonide 9mg daily and flagyl for 7 more days then we could do colonoscopy in 4-6 weeks to reassess (2) Chronic diarrhea: Code(s): K52.9 - Noninfective gastroenteritis and colitis, unspecified Status: Acute (3) Collagenous colitis: Code(s): K52.831 - Collagenous colitis Status: Acute Assessment and Plan: he has known history of collagenous colitis and was using budesonide at home (4) Compression fracture: Status: Acute Assessment and Plan: with osteoporosis (5) Osteoporosis: Qualifiers: Osteoporosis type: unspecified Presence of current pathological fracture: unspecified Qualified Code(s): M81.0 - Age-related osteoporosis without current pathological fracture Code(s): M81.0 - Age-related osteoporosis without current pathological fracture Status: Acute Subjective Date/time seen: 02/23/21 16:15 Interval history: he is eating and slowly feeling better, less diarrhea today Review of Systems Review of Systems: All systems reviewed & are unremarkable except as noted in HPI and below Exam Const: General: comfortable, no acute distress and ill appearing chronically Nutritional Appearance: thin and underweight HENMT: General nose exam: Normal nares present Eyes: General: appearance normal, both eyes and all related structures Neck: Neck: supple Resp: Auscultation: clear to auscultation bilaterally Cardio: Rate: regular rate GI: Inspection: non-distended GI Palp: Yes Soft to palpation and No Guarding due to palpation present (GI) Auscultation: normal bowel sounds Skin: General skin exam: no rashes or lesions noted Neuro: Speech: normal speech Extrem: General: normal to inspection Psych: Mental Status: mental status grossly normal Objective Data Vital Signs Vital Signs: Vital Signs - 24 hr 02/22/21 22:00 02/23/21 06:00 02/23/21 14:00 Temperature 97.4 F L 97.6 F 97.6 F Pulse Rate 85 99 106 H Respiratory Rate 16 16 16 Blood Pressure 132/72 145/83 H 93/56 L Pulse Oximetry 99 100 99 Intake/Output Intake/Output: Intake & Output 02/20/21 02/21/21 02/22/21 02/23/21 23:59 23:59 23:59 23:59 Intake Total 2890 3235 1830 Output Total 200 700 500 Balance 2690 2535 1330 Meds/Results Medications: Active Medications Generic Name Dose Route Start Last Admin Trade Name Freq PRN Reason Stop Dose Admin Acetaminophen 650 mg 02/21/21 10:00 02/21/21 21:29 Acetaminophen 325 Mg Tablet PO 650 mg Q4H PRN Administration Mild Pain (1-3) or Fever Duloxetine HCl 20 mg 02/22/21 09:00 02/23/21 09:01 Duloxetine Hcl 20 Mg Capsule.Dr PO 20 mg DAILY LINNEA Administration Enoxaparin Sodium 40 mg 02/22/21 09:00 02/23/21 09:01 Enoxaparin 40 Mg/0.4 Ml Syringe SUB-Q 40 mg DAILY LINNEA Administration Metronidazole 500 mg in 100 mls @ 100 mls/hr 02/21/21 22:45 02/23/21 15:01 Flagyl 500 Mg/Iso Soln 100 Ml IVPB Infused Q8HR LINNEA Infusion Methylprednisolone Sodium Succinate 40 mg 02/21/21 14:00 02/23/21 14:00 Methylprednisolone Sod Succ 40 Mg Vial IV PUSH 40 mg Q8HR LINNEA Administration Multivitamins Therapeutic 1 tablet 02/22/21 09:00 02/23/21 09:01 Multivitamins Therapeutic Tab (*Bkc) PO 1 tablet DAILY LINNEA Administration Ondansetron HCl 4 mg 02/21/21 10:00 Ondansetron Inj 4 Mg/2 Ml Vial IV PUSH Q4H PRN Nausea Radiology Results: ITS Impressions Miscellaneous CT Procedure 02/21/21 09:14 IMPRESSION: 1. Pancolitis which could be infectious, inflammatory or less likely ischemic in etiology. 2. L1 superior endplate compression fracture with minimal loss of height on the left which is new since
[2021-02-23 22:00] VITALS: BP 125/66; PULSE 70; RESP 16; TEMP 37.1; O2SAT 97
[2021-02-24] MEDS: methylPREDNISolone SOD SUCC 40 MG VIAL IV PUSH ×2 (05:47→13:20)
[2021-02-24] MEDS: metroNIDAZOLE 500 MG/ISO 100ML 500 MG/100 ML BAG 100 MG IVPB ×2 (05:47→13:20)
[2021-02-24 06:00] VITALS: BP 159/81; PULSE 82; RESP 16; TEMP 36.6; O2SAT 98
[2021-02-24] MEDS: ENOXAPARIN 40 MG/0.4 ML SYRINGE SUB-Q (08:18)
[2021-02-24] MEDS: MULTIVITAMINS THERAPEUTIC TAB (*BKC) 1 TABLET PO (08:18)
[2021-02-24] MEDS: DULoxetine HCL 20 MG CAPSULE.DR PO (08:18)
--- NOTE | 2021-02-24 12:39 | PCNFU ---
Nutrition Follow-Up Complete: Inadequate oral food and beverage intake related to colitis as evidence by poor appetite and constant diarrhea. Goal: Adequate intake of 75% or more of meals/supplement Patient has met nutritional goal. Pt current nutrition is Regular diet receiving Ensure Enlive TID providing 220 kcals and 9 g protein. Last recorded weight is 46 kg. No new weight reported. Bowel Motility: Last BM 02/23/21 Labs Reviewed: Hgb 11.5, Hct 34.2, Na 137, K 4.0, GFR 6, BUN 20, Cr .50, Glu 128 Meds Noted: Solu-Medrol, Normal Saline IV, Tylenol PRN, Zofran PRN, Multivitamin, Lovenox, Metronidazole. Additional Notes: Patient is eating 75 to 100% of meals. Patient reports appetite being good. Patient requested 2 Ensure Enlive Vanilla at meals. Follow up in 5 days (03/01)
--- NOTE | 2021-02-24 13:36 | PM.DS ---
DS: Admitting Diagnosis Admitting Diagnosis Admitting Diagnosis: Weakness DS: Discharge Diagnosis Discharge Diagnosis (1) Pancolitis: Code(s): K51.00 - Ulcerative (chronic) pancolitis without complications Status: Acute Assessment and Plan: He has been started on metronidazole and Solu-Medrol per Dr. León (Gastroenterology). Pt will need scopes to investigate further later once infection has cleared. Pt diarrhea is better pt feels ready for discharge. Discharge home, pt has help at home. Pt advised to drink 4 ensures or boosts a day to improve his nutritional status. Pancolitis secondary to UC, follow up with GI in 4-6 weeks for colonscopy. (2) Generalized weakness: Code(s): R53.1 - Weakness Status: Acute Assessment and Plan: Secondary to above in addition to generalized deconditioning. Pt has help at home. (3) Compression fracture: Status: Acute Assessment and Plan: New L1 superior endplate compression fracture noted on imaging today. Pt is on alendronate. (4) Chronic anemia: Code(s): D64.9 - Anemia, unspecified Status: Acute Assessment and Plan: Continue to monitor. (5) Parapelvic renal cyst: Code(s): N28.1 - Cyst of kidney, acquired Status: Acute Assessment and Plan: Stable (6) Underweight: Onset Date: 05/21/17 Code(s): R63.6 - Underweight Status: Acute Assessment and Plan: A longstanding issue, malnournishment (7) Person under investigation for COVID-19: Code(s): Z20.822 - Contact with and (suspected) exposure to COVID-19 Status: Ruled-out Assessment and Plan: Is negative DS: Summary Hospital Course Hospital Course: 80-year-old male with collagenous and lymphocytic colitis, anemia, and relatively recent T12 burst fracture status post kyphoplasty who presented to the emergency department earlier today via EMS from home with complaints of weakness. COVID negative, seen by GI, pt describes difficulty sleeping. Patient diarrhea is settling after, iv flagyl. Advised pt to drink 4 ensures or boosts a day and eat more, as he looks malnourished Time Spent with Patient Time attestation: Total time spent providing and/or coordinating discharge services: Exam Narrative: Exam Narrative: General: Cachectic-appearing male HEENT: Bitemporal wasting. Neck: Supple. No JVD. Respiratory: Lungs are clear to auscultation bilaterally. Cardiovascular: Regular rate and rhythm with S1-S2. Gastrointestinal: Abdomen is soft and thin appearing Extremities: No cyanosis, clubbing, or edema. Radial and pedal pulses intact. Neurological: Alert. Cranial nerves 2-12 are grossly intact. No gross focal deficits to casual conversation. Psychiatric: Pleasant and cooperative with normal mood and affect. DS: Data Data Completed and Pending Labs on day of discharge: Preliminary micro results at discharge 02/21/21 08:01 Blood Culture - Preliminary Blood Coag negative Staphylococcus 02/21/21 08:16 Blood Culture - Preliminary Blood Discharge Plan Discharge Attending physician on discharge: Henrietta Durbin Consulting providers: Paulo León Discharging Clinician: Henrietta Durbin Anticipated Discharge Date/Time: 02/24/21 13:25 Patient Disposition: Home, Self-Care Activity: as tolerated Diet: regular Discharge Instructions: dietary supplements, regular diet 7 Patient Instructions: Antibiotic Form, Malnutrition (GEN), Ulcerative Colitis (GEN), Suicide Prevention (DC), Depression in Older Adults (ED) Stand Alone Forms: General Discharge Information Follow-up/Referrals: Fernando Schultz DO [Primary Care Provider] - Paulo León MD [Physician] - (in 4-6 weeks time ) Discharge Medications: New budesonide 9 mg tablet,delayed and ext.release 9 mg PO DAILY Qty: 60 RF: 0 metronid
--- NOTE | 2021-02-24 13:37 | PCNSR ---
On 02/24/21, the student,Mercedez Villaseñor, provided care and completed [facility] documentation on this patient. I have reviewed the student's documentation and agree with the findings.
[2021-02-24 14:00] VITALS: BP 135/76; PULSE 106; RESP 16; TEMP 36.6; O2SAT 100
== END 2021-02-24 15:07 | disposition home health service (06) | DRG 392 ==
LOC: ANHED 09:54 → ANH3MEDSUR 10:19
PROVIDERS: Physician Assistant; Admitting Provider Family Medicine; Emergency Provider Emergency Medicine; PCP Internal Medicine; Visit Provider Family Medicine
DX: K52.831 Collagenous colitis (principal); E46 Unspecified protein-calorie malnutrition; R64 Cachexia; S22.081A Stable burst fracture of T11-T12 vertebra, initial encounter for closed fracture; S32.010A Wedge compression fracture of first lumbar vertebra, initial encounter for closed fracture; Z68.1 Body mass index [BMI] 19.9 or less, adult; K52.832 Lymphocytic colitis; Z20.822 Contact with and (suspected) exposure to COVID-19; D64.9 Anemia, unspecified; N28.1 Cyst of kidney, acquired; E86.0 Dehydration; M19.90 Unspecified osteoarthritis, unspecified site; J45.909 Unspecified asthma, uncomplicated; M81.0 Age-related osteoporosis without current pathological fracture; Z90.49 Acquired absence of other specified parts of digestive tract; Z87.891 Personal history of nicotine dependence
CPT/HCPCS: 36415; 71045; 72132; 74177; 80048; 80053; 81003; 82550; 82607; 82728; 82746; 83540; 83550; 83605; 83690; 83735; 84443; 85025; 85027; 85046; 87015; 87040; 87045; 87046; 87077; 87186; 87269; 87272; 87427; 93005; 96361; 96365; 96366; 96372; 96375; 96376; 97110; 97161; 97165; 97530; 99285; A9270; C9803; G0378; J1650; J2920; J7030; Q9967; U0003; U0005

== ENCOUNTER 2021-03-03 13:00 | Outpatient (CLI) | payer MEDICARE, SELFPAY | END 2021-03-03 13:01 | disposition home or self-care (01) | LOC: ANHCOVIDVC 13:01 | PROVIDERS: PCP Internal Medicine | DX: Z23 Encounter for immunization (principal) | CPT/HCPCS: 0001A; 91300 ==

== ENCOUNTER 2021-03-24 12:56 | Outpatient (CLI) | payer MEDICARE, SELFPAY | END 2021-03-24 12:57 | disposition home or self-care (01) | LOC: ANHCOVIDVC 12:56 | PROVIDERS: PCP Internal Medicine | DX: Z23 Encounter for immunization (principal) | CPT/HCPCS: 0002A; 91300 ==

== ENCOUNTER 2021-07-29 07:20 | Outpatient (CLI) | payer MEDICARE, SELFPAY ==
[2021-07-29 07:55] LABS: Hematocrit 40.5 % (42.0-52.0); Hemoglobin 12.9 g/dL (14.0-18.0)
== END 2021-07-29 07:21 | disposition home or self-care (01) ==
PROVIDERS: PCP Internal Medicine; Visit Provider Internal Medicine
DX: E53.8 Deficiency of other specified B group vitamins (principal); D64.9 Anemia, unspecified; R79.89 Other specified abnormal findings of blood chemistry
CPT/HCPCS: 36415; 82607; 84443; 85014; 85018

== ENCOUNTER 2022-02-03 10:09 | Outpatient (CLI) | payer MEDICARE, SELFPAY ==
[2022-02-03 11:02] LABS: Basophils Percent Auto 0.3 % (0.2-1.2); Eosinophils Absolute Auto 0.4 K/mm3 (0-0.3); Eosinophils Percent Auto 3.7 % (0-4.4); Hematocrit 43.1 % (42.0-52.0); Hemoglobin 13.8 g/dL (14.0-18.0); Immature Granulocyte Absolute 0.04 K/mm3 (0.00-0.031); Immature Granulocyte Percent A 0.3 % (0-0.5); Lymphocytes Absolute Auto 1.48 K/mm3 (0.9-3.2); Lymphocytes Percent Auto 12.6 % (18.3-44.2); Mean Corpuscular Hemoglobin 34.2 pg (26-34); Mean Corpuscular Volume 106.7 fl (80-100); Mean Platelet Volume 10.3 fl (7.4-10.4); Monocytes Absolute Auto 1.1 K/mm3 (0.1-0.6); Monocytes Percent Auto 9.1 % (2.6-8.5); Neutrophils Absolute Auto 8.7 K/mm3 (1.3-6.7); Platelet Count Result 275 k/mm3 (150-375); Red Blood Count 4.04 M/mm3 (4.6-6.20); Red Cell Distribution Width 13.5 % (11.5-14.5); White Blood Count 11.7 K/mm3 (4.5-10.0)
[2022-02-03 11:11] LABS: Alanine Aminotransferase 16 U/L (4-50); Albumin Level 4.2 g/dL (3.5-5.1); Alkaline Phosphatase 86 U/L (38-126); Anion Gap 7 mmol/L (8-16); Aspartate Amino Transferase 28 U/L (17-59); Bilirubin,Total 0.3 mg/dL (0.2-1.3); Blood Urea Nitrogen 21 mg/dL (9-20); Calcium 9.3 mg/dL (8.4-10.2); Carbon Dioxide 28 mmol/L (22-30); Chloride 103 mmol/L (98-107); Cholesterol 175 mg/dL (0-200); Estimated Glomerular Filt Rate > 60; Glucose 97 mg/dL (65-110); HDL Direct 95 mg/dL; Potassium 4.3 mmol/L (3.4-5.0); Sodium 138 mmol/L (137-145); Triglycerides 68 mg/dL (<150)
[2022-02-03 11:23] LABS: LDL Cholesterol Direct 57 mg/dL
== END 2022-02-03 10:10 | disposition home or self-care (01) ==
LOC: ANHLAB 10:19
PROVIDERS: PCP Internal Medicine; Visit Provider Nurse Practitioner
DX: D64.9 Anemia, unspecified (principal); E03.9 Hypothyroidism, unspecified; K59.00 Constipation, unspecified; E53.8 Deficiency of other specified B group vitamins; Z13.220 Encounter for screening for lipoid disorders; Z13.6 Encounter for screening for cardiovascular disorders
CPT/HCPCS: 36415; 80053; 80061; 82607; 84443; 85025

== ENCOUNTER 2022-04-19 14:20 | Emergency (ER) | payer MEDICARE, SELFPAY ==
--- NOTE | 2022-04-19 14:27 | ED.EYEPROB ---
HPI - Eye Problem General Chief complaint: Eye Problems Stated complaint: riht eye pain Time Seen by Provider: 04/19/22 14:30 Source: patient Mode of arrival: ambulatory Limitations: no limitations History of Present Illness HPI Narrative: 81-year-old male presented for complaint of right eye irritation for 3 to 4 days. States at times he feels like there is something in the eye, he states his daughter looked and did not see anything. He states it feels like an eyelash. Endorses intermittent pain is mild. States they rinsed the eye but then it felt worse. He denies drainage or headache, vision changes or dizziness. chief complaint: eye pain Related Data Allergies Allergy/AdvReac Type Severity Reaction Status Date / Time No Known Allergies Allergy Verified 04/19/22 14:24 Review of Systems Review of Systems: CONSTITUTIONAL: Denies body aches, fever, chills EYES:Endorses redness and pain to right eye; ENT: Denies rhinorrhea, congestion, sore throat, or otalgia. CARDIOVASCULAR: Denies chest pain, palpitations RESPIRATORY: Denies cough or dyspnea. NEUROLOGIC: Denies headache, numbness, tingling, or weakness. All systems reviewed & are unremarkable except as noted in HPI and below PMFSH Past Medical History Medical History Arthritis Asthma Bilateral nephrolithiasis Nonobstructing on CT dated 02/21/2021. Chronic anemia Chronic diarrhea Closed T12 spinal fracture Status post kyphoplasty. Collagenous colitis Followed by Dr. León. Esophageal stricture Status post dilatation x3. Gastroesophageal reflux disease Hiatal hernia History of Clostridium difficile colitis (~05/2018) Osteoporosis Parapelvic renal cyst Unchanged 3.6 cm parapelvic cyst at the right renal hilum noted on CT dated 02/21/2021 Postherpetic neuralgia Surgical History Surgical History Dupuytren's contracture of both hands History of appendectomy History of arthroscopy of right knee History of kyphoplasty Family History Family History Sibling Cerebrovascular accident Patient's sister is in good health Patient's brother is Diabetes mellitus Mother Patient's mother is Father Patient's father is Family history of aortic aneurysm, Onset Age: 86 Social History Social History Social History: Surrogate decision maker: Zarina Marie, . Code status: Full code. Smoking packs per day: 2 Smoking cigarettes per day: 40.0 Years smoked: 26 Smoking pack-years: 52.00 Smoking status: Former smoker Tobacco type: cigarettes Smoking end date: 11/05/84 Alcohol intake: former Drinks per week: 0 Alcohol use details: No alcohol since November 2016. Substance use: never Additional living arrangements comments: Patient lives in [place] with his . Additional occupation/education comments: Retired. Gender identity (if verbalized by the patient): Male Spiritual care concerns: No Comments At time of signature, I have reviewed and agree with nursing past medical, surgical, social and family history unless otherwise noted. Please see nursing chart for further information. There is no relevant family history pertinent to the presenting complaint Exam Narrative: GENERAL: Well-appearing HEAD: Normocephalic, atraumatic. EYES: right conjunctival injection, no eye lid swelling. PERRLA EOMI. Lid eversion showed no FB. No FB or corneal abrasion on granados lamp exam ENT: Mucous membranes pink and moist. No rhinorrhea. TMs normal bilaterally. Throat normal. Uvula midline. CHEST: No respiratory distress. Clear to auscultation. HEART: Regular rate and rhythm. No murmur appreciated. Normal peripheral pulses. NEURO: No focal deficits. Alert a
[2022-04-19 14:28] VITALS: BP 133/104; PULSE 120; RESP 16; TEMP 36.6; O2SAT 100
== END 2022-04-19 14:50 | disposition home or self-care (01) ==
PROVIDERS: Emergency Provider Nurse Practitioner Family; PCP Internal Medicine
DX: H10.31 Unspecified acute conjunctivitis, right eye (principal); Z87.891 Personal history of nicotine dependence; M19.90 Unspecified osteoarthritis, unspecified site; J45.909 Unspecified asthma, uncomplicated; K21.9 Gastro-esophageal reflux disease without esophagitis; M81.0 Age-related osteoporosis without current pathological fracture; Z86.19 Personal history of other infectious and parasitic diseases
CPT/HCPCS: 99213; A9270; G0463

== ENCOUNTER 2022-06-06 08:53 | Outpatient (CLI) | payer MEDICARE, SELFPAY ==
[2022-06-06 09:29] LABS: Basophils Absolute Auto 0.1 K/mm3 (0.0-0.1); Basophils Percent Auto 0.7 % (0.2-1.2); Eosinophils Absolute Auto 0.2 K/mm3 (0-0.3); Eosinophils Percent Auto 1.8 % (0-4.4); Hematocrit 46.9 % (42.0-52.0); Hemoglobin 14.9 g/dL (14.0-18.0); Immature Granulocyte Absolute 0.06 K/mm3 (0.00-0.031); Immature Granulocyte Percent A 0.5 % (0-0.5); Lymphocytes Absolute Auto 2.75 K/mm3 (0.9-3.2); Lymphocytes Percent Auto 24.1 % (18.3-44.2); Mean Corpuscular HGB Conc 31.8 g/dl (32-36); Mean Corpuscular Hemoglobin 33.4 pg (26-34); Mean Corpuscular Volume 105.2 fl (80-100); Mean Platelet Volume 10.8 fl (7.4-10.4); Monocytes Absolute Auto 1.4 K/mm3 (0.1-0.6); Neutrophils Absolute Auto 6.9 K/mm3 (1.3-6.7); Neutrophils Percent Auto 60.9 % (45.5-73.1); Platelet Count Result 313 k/mm3 (150-375); Red Blood Count 4.46 M/mm3 (4.6-6.20); Red Cell Distribution Width 13.9 % (11.5-14.5); White Blood Count 11.4 K/mm3 (4.5-10.0)
[2022-06-06 09:53] LABS: Alanine Aminotransferase 31 U/L (6-50); Albumin Level 4.5 g/dL (3.5-5.1); Alkaline Phosphatase 83 U/L (38-126); Anion Gap 15 mmol/L (8-16); Aspartate Amino Transferase 25 U/L (17-59); Bilirubin,Total 0.8 mg/dL (0.2-1.3); Blood Urea Nitrogen 24 mg/dL (9-20); Carbon Dioxide 25 mmol/L (22-30); Chloride 100 mmol/L (98-107); Estimated Glomerular Filt Rate > 60; Glucose 108 mg/dL (65-110); Sodium 140 mmol/L (137-145)
== END 2022-06-06 08:54 | disposition home or self-care (01) ==
PROVIDERS: PCP Internal Medicine; Visit Provider Internal Medicine
DX: D64.9 Anemia, unspecified (principal); K52.9 Noninfective gastroenteritis and colitis, unspecified; R93.6 Abnormal findings on diagnostic imaging of limbs
CPT/HCPCS: 36415; 80053; 85025

== ENCOUNTER 2022-06-07 08:35 | Outpatient (CLI) | payer MEDICARE, SELFPAY ==
[2022-06-07 09:45] LABS: Appearance Urine Clear (Clear); Bilirubin Urine 1+ (Negative); Blood Urine Negative (Negative); Glucose Urine UA Negative (Negative); Ketones Urine 2+ mg/dL (Negative); Leukocyte Esterase Ur Negative LEU/UL (Negative); Nitrate Urine Negative (Negative); Protein Urine Negative (Negative); Urobilinogen Urine 0.2 mg/dL (<2.0); pH Urine 5.5 (5.0-9.0)
[2022-06-07 09:52] LABS: Mucus Urine Rare /lpf; RBC Urine 0-2 /hpf (0-2); Squamous Epithelial Cell Urine Rare /hpf (Few); WBC Urine 0-3 /hpf
[2022-06-07 09:54] LABS: Add Urine Microscopic? YES; Color Urine Dark Yellow (Yellow)
[2022-06-07 13:50] LABS: Toxigenic C. Diff NEGATIVE (NEGATIVE)
== END 2022-06-07 08:36 | disposition home or self-care (01) ==
PROVIDERS: PCP Internal Medicine; Visit Provider Internal Medicine
DX: R41.0 Disorientation, unspecified (principal); R19.7 Diarrhea, unspecified
CPT/HCPCS: 81001; 87045; 87427; 87493

== ENCOUNTER 2022-06-28 18:19 | Inpatient (IN) | payer MEDICARE, SELFPAY ==
[2022-06-28] VITALS (18 sets, daily range): BP systolic 142–166; BP diastolic 91–108; PULSE 98–129; RESP 14–27; TEMP 36.2–36.6; O2SAT 90–100
--- NOTE | ~2022-06-28 | CT_ITS ---
EXAMINATION: CT chest abdomen pelvis wo con DATE: 07/01/2022 16:18 INDICATION: Leukocytosis. Acute infection of unknown source. TECHNIQUE: Computed tomography (CT) of the chest, abdomen, and pelvis was performed without intraveno us contrast. Automated exposure control and iterative reconstruction technique were employed. The dos e-length product was 330.16 mGy-cm. COMPARISON: CT chest abdomen pelvis dated 12/04/[address] of the abdomen and pelvis dated 02/21/2021 FINDINGS: CHEST CT: Chronic elevation of the left hemidiaphragm. Geographic regions of both lungs predominantly in the lo wer lobes with mild patchy consolidation, groundglass opacities and tiny centrilobular nodules with t ree-in-bud pattern consistent with multifocal pneumonia. Very small left and trace right pleural effu sions. Heart size is normal. Atherosclerotic coronary artery calcifications. No pericardial effusion. Calcified nodule in the right lung and calcified right hilar lymph nodes consistent with old granulo matous disease. Thoracic aorta is normal in caliber. Left thyroid lobe is small with relatively penny ns of the somewhat nodular appearing right thyroid lobe with more clearly defined rim calcified subce ntimeter right thyroid nodule. Chronic T11, T12 and L1 compression fractures, with prior vertebroplas ty at T12. ABDOMEN/PELVIS CT: Liver, gallbladder, spleen, pancreas, bilateral adrenal glands and left kidney are normal. Chronic 4. 0 x 2.4 cm parapelvic cyst at the right renal hilum. No hydronephrosis. There is a small metallic den sity within the lumen of the cecum with configuration on the allergy nurse topogram suggesting a screw measur ing 5 x 6 mm in maximal dimensions. No bowel obstruction. Gas and Fishman catheter within the bladder. No free intraperitoneal gas or fluid. No pathologically enlarged abdominal or pelvic lymphadenopathy. Diffuse osteopenia. Chronic small sclerotic bone island at the right posterior iliac spine. IMPRESSION: 1. Scattered bilateral lung disease most prominent in the lower lobes consistent with multifocal pneu monia. 2. Very small left and trace right pleural effusions. 3. New asymmetric enlargement of the somewhat nodular appearing right thyroid lobe with multiple decr ease in size of the left thyroid lobe. Which suggests possibility of a hyperfunctioning right thyroid nodule. Consider thyroid ultrasound for risk stratification. 4. Small likely ingested and nonobstructing metallic foreign body in the cecum. Reviewed, dictated and finalized at location A. IMPRESSION: 1. Scattered bilateral lung disease most prominent in the lower lobes consisten t with multifocal pneumonia. 2. Very small left and trace right pleural effusions. 3. New asymmetric enlargement of the somewhat nodular appearing right thyroid l obe with multiple decrease in size of the left thyroid lobe. Which suggests pos sibility of a hyperfunctioning right thyroid nodule. Consider thyroid ultrasoun d for risk stratification. 4. Small likely ingested and nonobstructing metallic foreign body in the cecum.
--- NOTE | ~2022-06-28 | XR_ITS ---
EXAMINATION: XR chest 1V portable Exam Date/Time: 06/28/2022 19:48 CDT HISTORY: AMS Comparison: 02/21/2021. RESULT: Lines, tubes, and devices: None. Lungs and pleura: Senescent change. Cardiomediastinal silhouette: Stable. Other: No acute osseous or upper abdominal finding. IMPRESSION: No acute cardiopulmonary process. Reviewed, dictated and finalized at location K.
--- NOTE | ~2022-06-28 | CT_ITS ---
EXAMINATION: CT brain wo con DATE: 06/28/2022 19:38 INDICATION: AMS . TECHNIQUE: Computed tomography (CT) of the head was performed without intravenous contrast. The mA wa s adjusted according to patient size. Iterative reconstruction technique was employed. The dose-lengt h product was 983.67 mGy-cm. COMPARISON: None FINDINGS: No acute intracranial hemorrhage or extra-axial fluid collection. No hydrocephalus, mass, or herniation. No acute ischemic infarct. Unremarkable dural venous sinus attenuation. No acute osseous abnormality. Right maxillary retention cysts or polyps, mild mucosal thickening in the left middle ethmoid air familia ls, trace left mastoid fluid, otherwise the aerated spaces are clear. Moderate atrophy and chronic white matter change. Atherosclerotic intracranial calcification. Bilater al lens replacements. IMPRESSION: No acute intracranial process. Reviewed, dictated and finalized at location K.
--- NOTE | 2022-06-28 18:54 | ECG_ITS ---
Measurements Intervals [place] Rate: 110 P: 75 DC: 132 QRS: 24 QRSD: 102 T: 70 QT: 348 QTc: 471 Interpretive Statements SINUS TACHYCARDIA WITH OCCASIONAL VENTRICULAR PREMATURE COMPLEXES CANNOT RULE OUT INFERIOR MYOCARDIAL INFARCTION, AGE INDETERMINATE ABNORMAL ECG COMPARED TO ECG 02/21/2021 07:43:55 NO SIGNIFICANT CHANGES Electronically Signed On 06-29-2022 15:04:58 CDT by Anurag Sandoval M.D.
[2022-06-28 19:15] LABS: Basophils Absolute Auto 0.1 K/mm3 (0.0-0.1); Basophils Percent Auto 0.4 % (0.2-1.2); Eosinophils Absolute Auto 0.3 K/mm3 (0-0.3); Eosinophils Percent Auto 2.8 % (0-4.4); Hematocrit 46.6 % (42.0-52.0); Hemoglobin 15.2 g/dL (14.0-18.0); Immature Granulocyte Absolute 0.04 K/mm3 (0.00-0.031); Immature Granulocyte Percent A 0.3 % (0-0.5); Lymphocytes Percent Auto 13.8 % (18.3-44.2); Mean Corpuscular HGB Conc 32.6 g/dl (32-36); Mean Corpuscular Hemoglobin 33.7 pg (26-34); Mean Corpuscular Volume 103.3 fl (80-100); Mean Platelet Volume 10.7 fl (7.4-10.4); Monocytes Absolute Auto 0.9 K/mm3 (0.1-0.6); Neutrophils Absolute Auto 8.6 K/mm3 (1.3-6.7); Neutrophils Percent Auto 74.7 % (45.5-73.1); Platelet Count Result 265 k/mm3 (150-375); Red Blood Count 4.51 M/mm3 (4.6-6.20); Red Cell Distribution Width 13.9 % (11.5-14.5); White Blood Count 11.6 K/mm3 (4.5-10.0)
--- NOTE | 2022-06-28 19:23 | ED.GENADULT ---
HPI - General Adult General Chief complaint: Altered Mental Status Stated complaint: AMS, combative Time Seen by Provider: 06/28/22 19:11 History of Present Illness HPI narrative: This is an 82-year-old male presenting ED with altered mental status. Per the patient's he has been on a steady decline for several months. He has good days and he has bad days. frequently does not realize that he is in his own home. Sometimes he has his who all the people have gone which is suspicious for visual hallucinations. He awoke he did not know where he was and was confused. He was more aggressive with his and she was unable to control him as he physically swelling at her. Patient is by his at home. She is starting to feel that she is no longer has the capability of caring for him due to his deteriorating condition.The patient himself is comatose time. He does not know why the hospital. He denies any complaints. Related Data Allergies Allergy/AdvReac Type Severity Reaction Status Date / Time No Known Allergies Allergy Verified 06/05/22 12:40 Review of Systems Review of Systems: CONSTITUTIONAL: Denies night sweats. EYES: No eye pain ENT: Denies rhinorrhea CARDIOVASCULAR: Denies palpitations RESPIRATORY: Denies hemoptysis GASTROINTESTINAL: Denies hematemesis GENITOURINARY: Denies hematuria. SKIN: Denies rash MUSCULOSKELETAL: Denies myalgia. NEUROLOGIC: Denies weakness. PSYCHIATRIC: Denies delusions PMFSH Past Medical History Medical History Arthritis Asthma Bilateral nephrolithiasis Nonobstructing on CT dated 02/21/2021. Chronic anemia Chronic diarrhea Closed T12 spinal fracture Status post kyphoplasty. Collagenous colitis Followed by Dr. León. Esophageal stricture Status post dilatation x3. Gastroesophageal reflux disease Hiatal hernia History of Clostridium difficile colitis (~05/2018) Osteoporosis Parapelvic renal cyst Unchanged 3.6 cm parapelvic cyst at the right renal hilum noted on CT dated 02/21/2021 Postherpetic neuralgia Surgical History Surgical History Dupuytren's contracture of both hands History of appendectomy History of arthroscopy of right knee History of kyphoplasty Family History Family History Sibling Cerebrovascular accident Patient's sister is in good health Patient's brother is Diabetes mellitus Mother Patient's mother is Father Patient's father is Family history of aortic aneurysm, Onset Age: 86 Social History Social History Social History: Surrogate decision maker: Zarina Marie, . Code status: Full code. Smoking packs per day: 2 Smoking cigarettes per day: 40.0 Years smoked: 26 Smoking pack-years: 52.00 Smoking status: Former smoker Tobacco type: cigarettes Smoking end date: 11/05/84 Alcohol intake: former Drinks per week: 0 Alcohol use details: No alcohol since November 2016. Substance use: never Additional living arrangements comments: Patient lives in [place] with his . Additional occupation/education comments: Retired. Gender identity (if verbalized by the patient): Male Spiritual care concerns: No Exam Narrative: APPEARANCE: No apparent distress. Emaciated and cachectic, alert to person and place. Head atraumatic. EYES: PERRLA/EOMI, NOSE: Normal no drainage NECK: Supple, Trachea midline RESPIRATORY: CTAB, No increased work of breathing. CARDIOVASCULAR: S1S2 appreciated ABDOMINAL: Soft, nontender, nondistended, MUSCULOSKELETAl: No obvious deformities NEURO: Alert. Moving 4/4 extremities SKIN:: Warm, dry. Normal color, Stage I sacral decubitus ulcer PSYCHIATRIC: Normal affect Course Vital Signs Vital signs: V
[2022-06-28 19:25] LABS: Alanine Aminotransferase 20 U/L (6-50); Albumin Level 4.1 g/dL (3.5-5.1); Alkaline Phosphatase 77 U/L (38-126); Anion Gap 12 mmol/L (8-16); Aspartate Amino Transferase 28 U/L (17-59); Bilirubin,Total 0.5 mg/dL (0.2-1.3); Blood Urea Nitrogen 14 mg/dL (9-20); Calcium 8.4 mg/dL (8.4-10.2); Carbon Dioxide 26 mmol/L (22-30); Chloride 100 mmol/L (98-107); Estimated Glomerular Filt Rate > 60; Glucose 98 mg/dL (65-110); Potassium 3.6 mmol/L (3.4-5.0); Sodium 138 mmol/L (137-145)
[2022-06-28 19:27] LABS: Partial Thromboplastin Time 26.7 SECONDS (22.3-36.8)
[2022-06-28] MEDS: SODIUM CHLORIDE 0.9% IV 1,000 ML 999 ML IV CONT (19:41)
[2022-06-28 20:09] LABS: Lipase 19 U/L (23-300)
[2022-06-28 20:10] LABS: Lactic Acid Reflex 1.4 mmol/L (0.7-2.0)
[2022-06-28 20:25] LABS: Appearance Urine Clear (Clear); Bilirubin Urine Negative (Negative); Blood Urine Negative (Negative); Color Urine Yellow (Yellow); Glucose Urine UA Negative (Negative); Ketones Urine 2+ mg/dL (Negative); Leukocyte Esterase Ur Negative LEU/UL (Negative); Nitrate Urine Negative (Negative); Protein Urine Negative (Negative); Specific Grav Ur 1.015 (1.001-1.035); Urobilinogen Urine 0.2 mg/dL (<2.0); pH Urine 5.5 (5.0-9.0)
--- NOTE | 2022-06-28 20:29 | PM.IMHP ---
H&P: HPI History of Present Illness Date/Time: 06/28/22 20:29 Chief Complaint: confusion Narrative: this is an 82-year-old male with past medical history significant for gastroesophageal reflux disease, esophageal stricture,collagenous colitis, chronic diarrhea, chronic anemia, osteoporosis. patient was brought to the emergency room for evaluation due to 's concerns for the patient's confusion and overall decline in the last several months also decreased oral intake. Patient confused and hallucinating at times at home. At the time of my visit patient denied any concerns he states that he does not need to be in the hospital that he does not know why his here, that he is used to eating very little and his always been small. Patient knows that he is in [facility] in the town of [place]. He repeated several times that he worked for [employer] in [place] location. Denies any pain, any nausea, any vomiting, any diarrhea, states that he has been his usual state of health. Review of Systems Review of Systems: ROS unobtainable: Yes unobtainable due to medical condition ( Dementia) [facility] Past Medical History Medical History Arthritis Asthma Bilateral nephrolithiasis Nonobstructing on CT dated 02/21/2021. Chronic anemia Chronic diarrhea Closed T12 spinal fracture Status post kyphoplasty. Collagenous colitis Followed by Dr. León. Esophageal stricture Status post dilatation x3. Gastroesophageal reflux disease Hiatal hernia History of Clostridium difficile colitis (~05/2018) Osteoporosis Parapelvic renal cyst Unchanged 3.6 cm parapelvic cyst at the right renal hilum noted on CT dated 02/21/2021 Postherpetic neuralgia Surgical History Surgical History Dupuytren's contracture of both hands History of appendectomy History of arthroscopy of right knee History of kyphoplasty Family History Family History Sibling Cerebrovascular accident Patient's sister is in good health Patient's brother is Diabetes mellitus Mother Patient's mother is Father Patient's father is Family history of aortic aneurysm, Onset Age: 86 Social History Social History Social History: Surrogate decision maker: Zarina Marie, . Code status: Full code. Smoking packs per day: 2 Smoking cigarettes per day: 40.0 Years smoked: 26 Smoking pack-years: 52.00 Smoking status: Former smoker Alcohol intake: current Drinks per week: 5 Alcohol use details: No alcohol since November 2016. Substance use: never Additional living arrangements comments: Patient lives in [place] with his . Additional occupation/education comments: Retired. Gender identity (if verbalized by the patient): Male Spiritual care concerns: No Meds Home Medications and Allergies Home Medications Medication Instructions Recorded Confirmed Type budesonide 3 mg 1 mg PO TID 06/28/22 06/28/22 History capsule,delayed,extended release Allergies Allergy/AdvReac Type Severity Reaction Status Date / Time No Known Allergies Allergy Verified 06/05/22 12:40 Vital Signs Vital Signs - 24 hr 06/28/22 18:24 06/28/22 19:00 06/28/22 19:15 Temperature 97.7 F Pulse Rate 123 H 113 H 113 H Respiratory Rate 16 20 16 Blood Pressure 142/99 H Pulse Oximetry 98 100 98 06/28/22 19:39 06/28/22 19:41 06/28/22 19:45 Temperature Pulse Rate 122 H 117 H Respiratory Rate 24 H 27 H Blood Pressure 165/108 H Pulse Oximetry 97 94 99 Exam Narrative: patient is laying in a stretcher Const: General: cooperative, comfortable, no acute distress, well developed, alert, awake and other ( well-appearing) Nutritional Appearance: average body habitus
[2022-06-28 20:30] LABS: Add Urine Microscopic? YES; Mucus Urine Rare /lpf; RBC Urine 0-2 /hpf (0-2); WBC Urine 0-3 /hpf
[2022-06-28 20:30] LABS: Prothrombin Time 13.2 Seconds (11.1-14.7)
[2022-06-28] MEDS: OLANZapine 10 MG INJ VIAL IM (21:23)
--- NOTE | 2022-06-28 22:20 | ADMGEN ---
This patient, Anurag Marie, was admitted to [facility] Surg Room 305-02. Patient/family oriented to hospital policies and general routines including ID bracelet, bed and alarms, visiting hours, pain management, procedures, bathroom and other care routines, personal items, smoking policy, room service/diet, and visiting hours. Information on how to activate the Rapid Response Team has been discussed. Patient/Family are encouraged to report perceived risks to care and to ask questions if they do not understand what they are told or what they should do.
[2022-06-29] MEDS: OLANZapine 10 MG INJ VIAL IM (00:56)
[2022-06-29] MEDS: LORazepam INJ (*CRX) 2 MG/ML VIAL 1 MG IV PUSH (02:40)
[2022-06-29 05:46] VITALS: BP 179/100; PULSE 129; RESP 16; TEMP 35.6; O2SAT 90
[2022-06-29 08:00] VITALS: PULSE 88; RESP 16; O2SAT 96
--- NOTE | 2022-06-29 08:34 | PM.IMPN ---
Progress Note: A&P Assessment and Plan (1) Dementia: Code(s): F03.90 - Unspecified dementia without behavioral disturbance Status: Acute Assessment and Plan: started on memantine started on low-dose Seroquel for behavioral manifestations continue to monitor supportive care (2) Adult failure to thrive: Code(s): R62.7 - Adult failure to thrive Status: Acute Assessment and Plan: PT OT consult dietitian consult (3) Gastroesophageal reflux disease: Code(s): K21.9 - Gastro-esophageal reflux disease without esophagitis Status: Acute Assessment and Plan: PPI (4) Chronic anemia: Code(s): D64.9 - Anemia, unspecified Status: Acute Assessment and Plan: patient with elevated MCV methylmalonic acid in progress iron studies in progress folate in progress vitamin B12 in progress (5) Collagenous colitis: Code(s): K52.831 - Collagenous colitis Status: Acute Assessment and Plan: follows up in outpatient setting with GI Subjective Date/time seen: 06/29/22 08:34 patient is very unkempt appearance. Temporal wasting, muscle atrophy noted to bilateral upper and bilateral lower extremities, multiple tooth decay, poor dentition, dry oral mucosa, poor mentation. Patient was unable to be appropriately evaluated due to his AMS. Patient will need physical therapy, occupational therapy and further workup. Review of Systems Review of Systems: ROS unobtainable: Yes unobtainable due to medical condition ( Dementia) Exam Narrative: General: No acute distress. Unkempt appearance, cachectic appearance Mental Status: drowsy, disoriented to person, place, and time with clear speech. Skin: Skin in warm, dry and intact with scattered abrasions. Head: Normocephalic and atraumatic. temporal wasting Eyes: Conjunctivae are clear without exudates or hemorrhage. Sclera is non-icteric. EOM are intact, PERRLA. Ears: The external ear and canal are non-tender and without swelling or discharge. Nose: Nasal mucosa is pink and moist. Septum midline. Nares patent bilaterally. Throat: Oral mucosa pink and dry with poor dentition. Tongue midline. Neck: The neck supple without adenopathy. Trachea midline. No JVD. Cardiac: S1 and S2 regular rate and rhythm. No murmurs, gallops, or rubs auscultated. Respiratory: Chest wall symmetric, nontender and without deformity or trauma. Respirations even and unlabored. Lung sounds are clear to auscultation in all lobes bilaterally without wheezes, rhonchi, or rales. Abdominal: Abdomen soft, round and non-tender to palpation. Bowel sounds present and normoactive in all 4 quadrants. Spine: Neck and back with grossly normal curvature, no deformity in appearance or signs of trauma. Extremities: Upper and lower extremities atraumatic without tenderness or deformity. unable to perform muscle strength due to the patient's cooperation Neurological: Full and symmetric motor and light touch sensation bilaterally. Cranial nerves II-XII grossly intact. Objective Data Vital Signs Vital Signs: Vital Signs - 24 hr 06/28/22 18:24 06/28/22 19:00 06/28/22 19:15 Temperature 97.7 F Pulse Rate 123 H 113 H 113 H Respiratory Rate 16 20 16 Blood Pressure 142/99 H Pulse Oximetry 98 100 98 Oxygen Delivery 06/28/22 19:39 06/28/22 19:41 06/28/22 19:45 Temperature Pulse Rate 122 H 117 H Respiratory Rate 24 H 27 H Blood Pressure 165/108 H Pulse Oximetry 97 94 99 Oxygen Delivery 06/28/22 20:00 06/28/22 20:18 06/28/22 20:30 Temperature Pulse Rate 102 H 98 Respiratory Rate 23 H 24 H Blood Pressure 161/91 H 160/102 H Pulse Oximetry 100 98 Oxygen Delivery 06/28/22 20:31 06/28/22 20:45 06/28/22 21:00 Temperature Pulse Rate 99 104 H 104 H Respiratory Rate 21 H Blood Pressure 148/108 H Pulse Oximetry 99 99 Oxygen Delivery 06/28/22 21:01 06/28/22 21:15 06/28/22 21:48 Tem
[2022-06-29 08:59] VITALS: PULSE 88; O2SAT 96
--- NOTE | 2022-06-29 11:26 | PCPTNOTE ---
Attempted PT evaluation, patient is in restraints and has been violent over night per RN. RN recommended to hold off of therapy due to patient currently being calm. Hospitalist contacted and agreed to hold therapy until patient is cooperative. Will follow.
[2022-06-29 11:38] LABS: Iron 78 ug/dL (49-181)
[2022-06-29 11:47] LABS: Percent Iron Saturation 27 % (20-50)
--- NOTE | 2022-06-29 12:23 | PCOTNOTE ---
Per PT evaluation attempt, patient is in restraints and has been violent overnight per RN. RN recommended to hold off of therapy due to patient currently being calm. Hospitalist contacted and agreed to hold therapy until patient is cooperative. Will follow.
[2022-06-29 14:00] VITALS: PULSE 86; RESP 16; TEMP 36.6; O2SAT 95
[2022-06-29] MEDS: QUEtiapine FUMARATE 12.5 MG TABLET PO (20:07)
[2022-06-29 22:00] VITALS: BP 126/86; PULSE 117; RESP 20; TEMP 36.3; O2SAT 98
[2022-06-30] MEDS: LORazepam INJ (*CRX) 2 MG/ML VIAL 1 MG IV PUSH (01:51)
[2022-06-30 05:25] LABS: Basophils Absolute Auto 0.1 K/mm3 (0.0-0.1); Basophils Percent Auto 0.2 % (0.2-1.2); Hematocrit 40.6 % (42.0-52.0); Hemoglobin 13.3 g/dL (14.0-18.0); Immature Granulocyte Absolute 0.14 K/mm3 (0.00-0.031); Immature Granulocyte Percent A 0.6 % (0-0.5); Lymphocytes Absolute Auto 1.09 K/mm3 (0.9-3.2); Lymphocytes Percent Auto 4.8 % (18.3-44.2); Mean Corpuscular HGB Conc 32.8 g/dl (32-36); Mean Corpuscular Hemoglobin 33.4 pg (26-34); Mean Platelet Volume 11.1 fl (7.4-10.4); Monocytes Percent Auto 8.9 % (2.6-8.5); Neutrophils Absolute Auto 19.3 K/mm3 (1.3-6.7); Neutrophils Percent Auto 85.5 % (45.5-73.1); Platelet Count Result 259 k/mm3 (150-375); Red Blood Count 3.98 M/mm3 (4.6-6.20); Red Cell Distribution Width 13.9 % (11.5-14.5); White Blood Count 22.6 K/mm3 (4.5-10.0)
[2022-06-30 05:40] LABS: Alanine Aminotransferase 16 U/L (6-50); Albumin Level 3.7 g/dL (3.5-5.1); Alkaline Phosphatase 69 U/L (38-126); Anion Gap 15 mmol/L (8-16); Aspartate Amino Transferase 39 U/L (17-59); Bilirubin,Total 0.7 mg/dL (0.2-1.3); Blood Urea Nitrogen 18 mg/dL (9-20); Calcium 8.4 mg/dL (8.4-10.2); Carbon Dioxide 18 mmol/L (22-30); Chloride 109 mmol/L (98-107); Estimated Glomerular Filt Rate > 60; Glucose 92 mg/dL (65-110); Potassium 3.9 mmol/L (3.4-5.0); Sodium 142 mmol/L (137-145)
[2022-06-30 06:00] VITALS: BP 108/57; PULSE 117; RESP 18; TEMP 36.3; O2SAT 90
--- NOTE | 2022-06-30 07:48 | PM.IMPN ---
Progress Note: A&P Assessment and Plan (1) Dementia: Code(s): F03.90 - Unspecified dementia without behavioral disturbance Status: Acute Assessment and Plan: Continuememantine continue low-dose Seroquel for behavioral manifestations continue to monitor supportive care (2) Adult failure to thrive: Code(s): R62.7 - Adult failure to thrive Status: Acute Assessment and Plan: PT/ OT consulted for further evaluation and treatment. At this time the patient is unable to work with the physical therapist appropriately today. Will re-evaluate tomorrow registered dietitian consulted due to the patient's failure to thrive and severe protein calorie malnutrition (3) Gastroesophageal reflux disease: Code(s): K21.9 - Gastro-esophageal reflux disease without esophagitis Status: Acute Assessment and Plan: PPI (4) Chronic anemia: Code(s): D64.9 - Anemia, unspecified Status: Acute Assessment and Plan: patient with elevated MCV methylmalonic acid in progress iron studies WNL folate WNL vitamin B12 WNL (5) Collagenous colitis: Code(s): K52.831 - Collagenous colitis Status: Acute Assessment and Plan: follows up in outpatient setting with GI (6) Leukocytosis: Code(s): D72.829 - Elevated white blood cell count, unspecified Status: Acute Assessment and Plan: patient has significant leukocytosis. unknown source. Monitor I&Os, vital signs, neuro status and patient is a fall risk Monitor serum electrolytes, CBC, WBC, temperature curve and follow cultures Provide IV fluid resuscitation for hemodynamic stability IV Vancomycin, consult pharmacy to dose, send Vancomycin trough levels before 4th dose and Zosyn 3.375mg Q 6 hours P.r.n. Tylenol, Zofran, and melatonin Subjective Date/time seen: 06/30/22 07:48 patient minimally responsive this morning. Started IV fluids, antibiotics. Patient is able to smile when and S and Gram hands when appropriate. He still remains in restraints due to confusion. Will continue to monitor and provide supportive care. And further investigation to leukocytosis. Review of Systems Review of Systems: ROS unobtainable: Yes unobtainable due to medical condition ( Dementia) Exam Narrative: General: No acute distress. Unkempt appearance, cachectic appearance Mental Status: drowsy, disoriented to person, place, and time with clear speech. Skin: Skin in warm, dry and intact with scattered abrasions. Head: Normocephalic and atraumatic. temporal wasting Eyes: Conjunctivae are clear without exudates or hemorrhage. Sclera is non-icteric. EOM are intact, PERRLA. Ears: The external ear and canal are non-tender and without swelling or discharge. Nose: Nasal mucosa is pink and moist. Septum midline. Nares patent bilaterally. Throat: Oral mucosa pink and dry with poor dentition. Tongue midline. Neck: The neck supple without adenopathy. Trachea midline. No JVD. Cardiac: S1 and S2 regular rate and rhythm. No murmurs, gallops, or rubs auscultated. Respiratory: Chest wall symmetric, nontender and without deformity or trauma. Respirations even and unlabored. Lung sounds are clear to auscultation in all lobes bilaterally without wheezes, rhonchi, or rales. Abdominal: Abdomen soft, round and non-tender to palpation. Bowel sounds present and normoactive in all 4 quadrants. Spine: Neck and back with grossly normal curvature, no deformity in appearance or signs of trauma. Extremities: Upper and lower extremities atraumatic without tenderness or deformity. unable to perform muscle strength due to the patient's cooperation Neurological: Full and symmetric motor and light touch sensation bilaterally. Cranial nerves II-XII grossly intact. Objective Data Vital Signs Vital Signs: Vital Signs - 24 hr 06/29/22 08:59 06/29/22 08:00 06/29/22 14:00 Temperature 97.9 F Pulse Rate 88 88 86 Respirato
--- NOTE | 2022-06-30 08:30 | PCOTNOTE ---
Attempted to see pt. for occupational therapy evaluation. Pt. declined services at this time. Spoke with hospitalist, who reports she will follow up regarding pt.'s current medical status and potential confusion, with previous aggression with staff. Will follow.
--- NOTE | 2022-06-30 09:31 | PCPTNOTE ---
Per OT: Pt. declined services at this time. Spoke with hospitalist, who reports she will follow up regarding pt.'s current medical status and potential confusion, with previous aggression with staff. Will follow.
[2022-06-30 10:17] VITALS: BMI 13.8
[2022-06-30 10:18] VITALS: BMI 13.8
[2022-06-30 10:26] LABS: Glucose Point of Care 112 mg/dl (65-105)
[2022-06-30] MEDS: SODIUM CHLORIDE 0.9% IV 1,000 ML 100 ML IV CONT ×2 (10:56→23:09)
[2022-06-30 12:06] LABS: Glucose Point of Care 93 mg/dl (65-105)
[2022-06-30] MEDS: SODIUM CHLORIDE 0.9% IV 1,000 ML 999 ML IV CONT (12:31)
[2022-06-30 14:00] VITALS: BP 157/95; PULSE 119; RESP 20; TEMP 36.7; O2SAT 98
[2022-06-30 18:25] LABS: Glucose Point of Care 121 mg/dl (65-105)
[2022-06-30 22:00] VITALS: BP 168/103; PULSE 122; RESP 20; TEMP 36.4; O2SAT 97
[2022-07-01 05:52] VITALS: BP 129/54; PULSE 82; RESP 18; TEMP 37; O2SAT 98
[2022-07-01 06:06] LABS: Glucose Point of Care 95 mg/dl (65-105)
[2022-07-01 06:13] LABS: Basophils Percent Auto 0.1 % (0.2-1.2); Hematocrit 39.8 % (42.0-52.0); Hemoglobin 12.8 g/dL (14.0-18.0); Immature Granulocyte Absolute 0.14 K/mm3 (0.00-0.031); Immature Granulocyte Percent A 0.6 % (0-0.5); Lymphocytes Absolute Auto 0.61 K/mm3 (0.9-3.2); Lymphocytes Percent Auto 2.8 % (18.3-44.2); Mean Corpuscular HGB Conc 32.2 g/dl (32-36); Mean Corpuscular Hemoglobin 33.3 pg (26-34); Mean Corpuscular Volume 103.6 fl (80-100); Monocytes Absolute Auto 2.3 K/mm3 (0.1-0.6); Monocytes Percent Auto 10.4 % (2.6-8.5); Neutrophils Absolute Auto 18.9 K/mm3 (1.3-6.7); Neutrophils Percent Auto 86.1 % (45.5-73.1); Platelet Count Result 228 k/mm3 (150-375); Red Blood Count 3.84 M/mm3 (4.6-6.20); Red Cell Distribution Width 14.6 % (11.5-14.5)
[2022-07-01 06:27] LABS: Alanine Aminotransferase 20 U/L (6-50); Albumin Level 3.5 g/dL (3.5-5.1); Alkaline Phosphatase 63 U/L (38-126); Anion Gap 13 mmol/L (8-16); Aspartate Amino Transferase 48 U/L (17-59); Bilirubin,Total 0.7 mg/dL (0.2-1.3); Blood Urea Nitrogen 21 mg/dL (9-20); Calcium 8.3 mg/dL (8.4-10.2); Carbon Dioxide 18 mmol/L (22-30); Chloride 109 mmol/L (98-107); Estimated CRCL calculation 39 ml/min; Estimated Glomerular Filt Rate > 60; Glucose 100 mg/dL (65-110); Potassium 3.4 mmol/L (3.4-5.0); Sodium 140 mmol/L (137-145)
--- NOTE | 2022-07-01 07:02 | PM.IMPN ---
Progress Note: A&P Assessment and Plan (1) Dementia: Code(s): F03.90 - Unspecified dementia without behavioral disturbance Status: Acute Assessment and Plan: Continuememantine continue low-dose Seroquel for behavioral manifestations continue to monitor supportive care (2) Adult failure to thrive: Code(s): R62.7 - Adult failure to thrive Status: Acute Assessment and Plan: PT/ OT consulted for further evaluation and treatment. At this time the patient is unable to work with the physical therapist appropriately today. Will re-evaluate tomorrow registered dietitian consulted due to the patient's failure to thrive and severe protein calorie malnutrition (3) Gastroesophageal reflux disease: Code(s): K21.9 - Gastro-esophageal reflux disease without esophagitis Status: Acute Assessment and Plan: PPI (4) Chronic anemia: Code(s): D64.9 - Anemia, unspecified Status: Acute Assessment and Plan: patient with elevated MCV methylmalonic acid in progress iron studies WNL folate WNL vitamin B12 WNL (5) Collagenous colitis: Code(s): K52.831 - Collagenous colitis Status: Acute Assessment and Plan: follows up in outpatient setting with GI (6) Leukocytosis: Code(s): D72.829 - Elevated white blood cell count, unspecified Status: Acute Assessment and Plan: patient has significant leukocytosis. unknown source. Monitor I&Os, vital signs, neuro status and patient is a fall risk Monitor serum electrolytes, CBC, WBC, temperature curve and follow cultures Provide IV fluid resuscitation for hemodynamic stability IV Vancomycin, consult pharmacy to dose, send Vancomycin trough levels before 4th dose and Zosyn 3.375mg Q 6 hours P.r.n. Tylenol, Zofran, and melatonin Subjective Date/time seen: 07/01/22 07:02 Patient is more active today. Mental status the patient is extremely confused. Patient continues to have a sitter at bedside for safety. I had a lengthy discussion with his significant other on 06/30/2022 about the patient's plan of care. Will continue as is and treat for possible underlying infection and may discuss hospice referral in the near future. Review of Systems Review of Systems: ROS unobtainable: Yes unobtainable due to medical condition ( Dementia) Exam Narrative: General: No acute distress. Unkempt appearance, cachectic appearance Mental Status: drowsy, disoriented to person, place, and time with clear speech. Skin: Skin in warm, dry and intact with scattered abrasions. Head: Normocephalic and atraumatic. temporal wasting Eyes: Conjunctivae are clear without exudates or hemorrhage. Sclera is non-icteric. EOM are intact, PERRLA. Ears: The external ear and canal are non-tender and without swelling or discharge. Nose: Nasal mucosa is pink and moist. Septum midline. Nares patent bilaterally. Throat: Oral mucosa pink and dry with poor dentition. Neck: The neck supple without adenopathy. Trachea midline. No JVD. Cardiac: S1 and S2 regular rate and rhythm. No murmurs, gallops, or rubs auscultated. Respiratory: Chest wall symmetric, nontender and without deformity or trauma. Respirations even and unlabored. Abdominal: Abdomen soft, round and non-tender to palpation. Bowel sounds present and normoactive in all 4 quadrants. Spine: Neck and back with grossly normal curvature, no deformity in appearance or signs of trauma. Extremities: Upper and lower extremities atraumatic without tenderness or deformity. Neurological: Cranial nerves II-XII grossly intact. Objective Data Vital Signs Vital Signs: Vital Signs - 24 hr 06/30/22 14:00 06/30/22 20:00 06/30/22 22:00 Temperature 98.0 F 97.5 F L Pulse Rate 119 H 122 H Respiratory Rate 20 20 Blood Pressure 157/95 H 168/103 H Pulse Oximetry 98 97 Oxygen Delivery Room Air 07/01/22 05:52 Temperature 98.6 F Pulse Rate 82 Respirato
--- NOTE | 2022-07-01 09:30 | PCOTNOTE ---
Per RN, patient is not appropriate, hospitalist is aware, and wants evaluation to be attempted again on Sunday07/03/22.
--- NOTE | 2022-07-01 09:33 | PCPTNOTE ---
Per RN, patient is not appropriate, hospitalist is aware, and wants evaluation to be attempted again on Sunday07/03/22. Will follow
[2022-07-01 11:49] LABS: Glucose Point of Care 101 mg/dl (65-105)
[2022-07-01] MEDS: OLANZapine 10 MG INJ VIAL 2.5 MG IM (12:26)
[2022-07-01] MEDS: SODIUM CHLORIDE 0.9% IV 1,000 ML 100 ML IV CONT ×2 (13:06→23:44)
[2022-07-01 14:00] VITALS: BP 153/61; PULSE 100; RESP 20; TEMP 36.8; O2SAT 96
[2022-07-01 17:38] LABS: Glucose Point of Care 100 mg/dl (65-105)
[2022-07-01 21:56] VITALS: BP 131/86; PULSE 103; RESP 18; TEMP 36.5; O2SAT 93
[2022-07-01] MEDS: LORazepam INJ (*CRX) 2 MG/ML VIAL 1 MG IV PUSH (23:45)
[2022-07-02 00:50] LABS: Glucose Point of Care 104 mg/dl (65-105)
[2022-07-02 05:52] VITALS: BP 129/69; PULSE 81; RESP 20; TEMP 36.1; O2SAT 95
[2022-07-02 06:23] LABS: Basophils Percent Auto 0.2 % (0.2-1.2); Eosinophils Percent Auto 0.1 % (0-4.4); Hematocrit 40.1 % (42.0-52.0); Hemoglobin 13.1 g/dL (14.0-18.0); Immature Granulocyte Percent A 0.6 % (0-0.5); Lymphocytes Absolute Auto 0.78 K/mm3 (0.9-3.2); Lymphocytes Percent Auto 4.4 % (18.3-44.2); Mean Corpuscular HGB Conc 32.7 g/dl (32-36); Mean Corpuscular Hemoglobin 33.3 pg (26-34); Mean Platelet Volume 11.5 fl (7.4-10.4); Monocytes Absolute Auto 1.6 K/mm3 (0.1-0.6); Monocytes Percent Auto 8.9 % (2.6-8.5); Neutrophils Absolute Auto 15.1 K/mm3 (1.3-6.7); Neutrophils Percent Auto 85.8 % (45.5-73.1); Platelet Count Result 173 k/mm3 (150-375); Red Blood Count 3.93 M/mm3 (4.6-6.20); Red Cell Distribution Width 14.6 % (11.5-14.5); White Blood Count 17.6 K/mm3 (4.5-10.0)
[2022-07-02 06:34] LABS: Alanine Aminotransferase 22 U/L (6-50); Albumin Level 3.1 g/dL (3.5-5.1); Alkaline Phosphatase 73 U/L (38-126); Anion Gap 15 mmol/L (8-16); Aspartate Amino Transferase 51 U/L (17-59); Bilirubin,Total 0.9 mg/dL (0.2-1.3); Blood Urea Nitrogen 13 mg/dL (9-20); Calcium 7.8 mg/dL (8.4-10.2); Carbon Dioxide 20 mmol/L (22-30); Chloride 105 mmol/L (98-107); Estimated CRCL calculation 51 ml/min; Estimated Glomerular Filt Rate > 60; Glucose 96 mg/dL (65-110); Potassium 3.1 mmol/L (3.4-5.0); Sodium 140 mmol/L (137-145)
--- NOTE | 2022-07-02 06:59 | PM.IMPN ---
Progress Note: A&P Assessment and Plan (1) Dementia: Code(s): F03.90 - Unspecified dementia without behavioral disturbance Status: Acute Assessment and Plan: Continuememantine continue low-dose Seroquel for behavioral manifestations continue to monitor supportive care (2) Adult failure to thrive: Code(s): R62.7 - Adult failure to thrive Status: Acute Assessment and Plan: PT/ OT consulted for further evaluation and treatment. At this time the patient is unable to work with the physical therapist appropriately today. Will re-evaluate tomorrow registered dietitian consulted due to the patient's failure to thrive and severe protein calorie malnutrition Will need to initiate PPN for supplemental nutrition during the patients acute phase of dental abscess/infection and poor oral intake. Patient has been NPO for 3 days. Discuss PPN with Family on 07/01/22, they were agreeable at that time. also discussed possible GTube placement, information will be provided by gastroenterology. patient's family was provided information on hospice, referral was sent. However, continue treatment (3) Gastroesophageal reflux disease: Code(s): K21.9 - Gastro-esophageal reflux disease without esophagitis Status: Acute Assessment and Plan: PPI (4) Chronic anemia: Code(s): D64.9 - Anemia, unspecified Status: Acute Assessment and Plan: patient with elevated MCV methylmalonic acid in progress iron studies WNL folate WNL vitamin B12 WNL (5) Collagenous colitis: Code(s): K52.831 - Collagenous colitis Status: Acute Assessment and Plan: follows up in outpatient setting with GI (6) Leukocytosis: Code(s): D72.829 - Elevated white blood cell count, unspecified Status: Acute Assessment and Plan: Patient has significant leukocytosis. unknown source. possibly from a dental abscess? Monitor I&Os, vital signs, neuro status and patient is a fall risk Monitor serum electrolytes, CBC, WBC, temperature curve and follow cultures Provide IV fluid resuscitation for hemodynamic stability IV Vancomycin, consult pharmacy to dose, send Vancomycin trough levels before 4th dose and Zosyn 3.375mg Q 6 hours P.r.n. Tylenol, Zofran, and melatonin (7) Dental abscess: Code(s): K04.7 - Periapical abscess without sinus Status: Acute Assessment and Plan: Provide IV fluid resuscitation for hemodynamic stability IV Vancomycin, consult pharmacy to dose, send Vancomycin trough levels before 4th dose and Zosyn 3.375mg Q [address] Salamanca with the ENT for further evaluation. Appreciate assistance and recommendations patient has been unable to eat for the past month most likely related to the dental abscesses and poor dental care. Patient was noted have muscle atrophy in temporal wasting. Requirement to start PPN due to poor nutritional intake. Orders placed. Family will have a discussion with gastroenterology about possible G-tube placement due to poor oral intake Additional Plan spoke with Case Management about plan of care for the patient. Patient will have a hospice referral for information on plan of care or possible longterm placement. Subjective Date/time seen: 07/02/22 06:59 patient is less combative this morning. He was able to open his mouth for further evaluation of his port in taken. Patient appeared to have a abscess to his left upper molar And patient has other irritated and abscess appearing lesions in his mouth. Currently being treated with vancomycin and Zosyn. Review of Systems Review of Systems: ROS unobtainable: Yes unobtainable due to medical condition ( Dementia) Exam Narrative: General: No acute distress. Unkempt appearance, cachectic appearance, temporal wasting Mental Status: alert, disoriented to person, place, and time with clear speech. Skin: Skin in warm, dry and intact w
--- NOTE | 2022-07-02 09:23 | PCSTNOTE ---
Per nurse modified barium swallow is not appropriate for patient and he will not be receiving it today.
[2022-07-02] MEDS: POTASSIUM CHLORIDE INJ 40 MEQ in SODIUM CHLORIDE 0.9% IV 500 ML 130 MEQ IVPB (09:40)
--- NOTE | 2022-07-02 09:50 | PCPTNOTE ---
discussed pt with RAZ Burdick, she stated to HOLD PT today; PT eval not completed;
[2022-07-02 11:54] LABS: Glucose Point of Care 78 mg/dl (65-105)
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
[2022-07-02 14:00] VITALS: BP 117/83; PULSE 104; RESP 16; TEMP 36.3; O2SAT 97
[2022-07-02] MEDS: FAT EMULSIONS IV 20% 250 ML 20.83 ML IVPB (14:09)
[2022-07-02] MEDS: AMINO ACIDS 4.25%/D5W/LYTES/CA 2,000 ML 80 ML IV CONT (14:09)
[2022-07-02 17:28] LABS: Glucose Point of Care 119 mg/dl (65-105)
[2022-07-02] MEDS: QUEtiapine FUMARATE 12.5 MG TABLET PO (20:00)
[2022-07-02 22:00] VITALS: BP 147/82; PULSE 104; RESP 18; TEMP 36.2; O2SAT 94
[2022-07-03 02:53] LABS: Glucose Point of Care 172 mg/dl (65-105)
[2022-07-03 06:00] VITALS: BP 122/72; PULSE 63; RESP 14; TEMP 36.2; O2SAT 98
[2022-07-03 06:42] LABS: Glucose Point of Care 149 mg/dl (65-105)
[2022-07-03 07:52] LABS: Hematocrit 42.1 % (42.0-52.0); Mean Corpuscular HGB Conc 33.3 g/dl (32-36); Mean Corpuscular Hemoglobin 33.3 pg (26-34); Mean Corpuscular Volume 100.2 fl (80-100); Mean Platelet Volume 11.2 fl (7.4-10.4); Platelet Count Result 163 k/mm3 (150-375); Red Cell Distribution Width 14.6 % (11.5-14.5); White Blood Count 19.4 K/mm3 (4.5-10.0)
--- NOTE | 2022-07-03 07:55 | WPDCN ---
Assessment and Plan Assessment and plan (1) Disorder of oral cavity: Status: Acute Assessment and Plan: The patient has overgrowth of fungus and bacteria in the mouth would recommend very frequent oral hygiene including swabs with chlorhexidine or even water just to simply remove the debris in the oral cavity as well as, if the patient is able to, mouthwash with chlorhexidine 4 times per day after meals and before bed. The debris could be removed manually. Would also recommend dental evaluation when able. HPI Data of Consult Date/Time: 07/03/22 07:55 Requesting Physician: Alfred Hughes MD Primary Care Provider: Fernando Schultz, Consult Narrative Reason for consult: Abnormal oral cavity appearing Narrative: Anurag Marie is a 82 year old male report of dementia or recent sepsis or infectious episode leading to altered mental status. Other providers have looked in the patient's oral cavity and reported that looks abnormal. ENT consult for further evaluation treatment. Review of Systems Review of Systems: ROS unobtainable: Yes unobtainable due to medical condition and unobtainable due to mental status PMFSH Past Medical History Medical History Arthritis Asthma Bilateral nephrolithiasis Nonobstructing on CT dated 02/21/2021. Chronic anemia Chronic diarrhea Closed T12 spinal fracture Status post kyphoplasty. Collagenous colitis Followed by Dr. León. Esophageal stricture Status post dilatation x3. Gastroesophageal reflux disease Hiatal hernia History of Clostridium difficile colitis (~05/2018) Osteoporosis Parapelvic renal cyst Unchanged 3.6 cm parapelvic cyst at the right renal hilum noted on CT dated 02/21/2021 Postherpetic neuralgia Surgical History Surgical History Dupuytren's contracture of both hands History of appendectomy History of arthroscopy of right knee History of kyphoplasty Family History Family History Sibling Cerebrovascular accident Patient's sister is in good health Patient's brother is Diabetes mellitus Mother Patient's mother is Father Patient's father is Family history of aortic aneurysm, Onset Age: 86 Social History Social History Social History: Surrogate decision maker: Zarina Marie, . Code status: Full code. Smoking packs per day: 2 Smoking cigarettes per day: 40.0 Years smoked: 26 Smoking pack-years: 52.00 Smoking status: Former smoker Alcohol intake: current Drinks per week: 5 Alcohol use details: No alcohol since November 2016. Substance use: never Additional living arrangements comments: Patient lives in [place] with his . Additional occupation/education comments: Retired. Gender identity (if verbalized by the patient): Male Spiritual care concerns: No Meds Home Medications and Allergies Home Medications Medication Instructions Recorded Confirmed Type budesonide 3 mg 1 mg PO TID 06/28/22 06/28/22 History capsule,delayed,extended release Allergies Allergy/AdvReac Type Severity Reaction Status Date / Time No Known Allergies Allergy Verified 06/05/22 12:40 Vital Signs Vital Signs - 24 hr 07/02/22 08:00 07/02/22 14:00 07/02/22 22:00 Temperature 36.3 C L 36.2 C L Pulse Rate 104 H 104 H Respiratory Rate 16 18 Blood Pressure 117/83 147/82 H Pulse Oximetry 97 94 Oxygen Delivery Room Air 07/03/22 06:00 Temperature 36.2 C L Pulse Rate 63 Respiratory Rate 14 Blood Pressure 122/72 Pulse Oximetry 98 Oxygen Delivery Exam Narrative: Normal ENT exam other than some dental caries and, the best way to do be scribe it would be a little bit of a rot mouth which is an over growth of ba
[2022-07-03 08:06] LABS: Alanine Aminotransferase 28 U/L (6-50); Alkaline Phosphatase 76 U/L (38-126); Anion Gap 10 mmol/L (8-16); Aspartate Amino Transferase 41 U/L (17-59); Bilirubin,Total 1.1 mg/dL (0.2-1.3); Blood Urea Nitrogen 22 mg/dL (9-20); Calcium 8.3 mg/dL (8.4-10.2); Carbon Dioxide 25 mmol/L (22-30); Chloride 102 mmol/L (98-107); Estimated CRCL calculation 60 ml/min; Estimated Glomerular Filt Rate > 60; Glucose 149 mg/dL (65-110); INR 1.1; Magnesium 1.8 mg/dL (1.6-2.3); Partial Thromboplastin Time 32.4 SECONDS (22.3-36.8); Phosphorus 1.3 mg/dL (2.5-4.5); Potassium 2.8 mmol/L (3.4-5.0); Prothrombin Time 13.6 Seconds (11.1-14.7); Sodium 137 mmol/L (137-145); Triglycerides 113 mg/dL (<150)
[2022-07-03 08:09] LABS: Transferrin 125 mg/dL (206-381)
[2022-07-03 08:31] LABS: Band Neutrophils Percent 5 % (0-6); Lymphocytes Absolute Manual 0.58 K/mm3 (1.1-4.5); Lymphocytes Percent Manual 3 % (18-44); Monocytes Absolute Manual 0.77 K/mm3 (0.1-0.90); Monocytes Percent Manual 4 % (3-9); Neutrophils Absolute Manual 18.04 K/mm3 (1.3-6.7); Neutrophils Percent Manual 88 % (46-73); Platelet Estimate Adequate (Adequate); Total Cells Counted 100
--- NOTE | 2022-07-03 08:41 | PCOTNOTE ---
Attempted to see pt. for occupational therapy evaluation. Pt.'s family meeting with Hospice consultation today, holding therapy evaluation until after consultation. Will follow.
[2022-07-03 09:04] LABS: Methylmalonic Acid 108 nmol/L (87-318)
[2022-07-03] MEDS: POTASSIUM CHLORIDE INJ 40 MEQ in SODIUM CHLORIDE 0.9% IV 500 ML 130 MEQ IVPB (09:15)
[2022-07-03 11:26] LABS: Glucose Point of Care 135 mg/dl (65-105)
--- NOTE | 2022-07-03 12:01 | PCNFU ---
Nutrition Follow-Up Complete: Severe malnutrition related to loss of appetite, dementia as evidenced by 13% weight loss in 4 months, poor intake, and muscle wasting and fat loss. Goal:Meal intake at least 50% Tolerate supplement Pt is not progressing towards goal. NPO at this time with PPN running for nutrition support Pt current nutrition is Clinimix E 4.25/5 @ 80ml/hr with lipids to provide 1153kcals, 82g protein. Last recorded weight is 43.6 kg - down from 46kg on admission. Bowel Motility: No BM reported Labs Reviewed: Alb:3.0, K:2.8, BUN:22, Cr:0.5 Meds Noted: seroquel Skin: abrasions Additional Notes: Pt is NPO on PPN for nutrition support. Discussion of a tube placement due to swallow issues but nursing reports no longer proceeding that way. Hospice consult this afternoon Monitor chewing ability, intakes, weights, labs, supplement tolerance. Follow up in 3 days unless placed on hospice care.
[2022-07-03 12:31] LABS: Vancomycin Trough < 5.0 ug/mL (10.0-20.0)
--- NOTE | 2022-07-03 13:01 | PM.IMPN ---
Progress Note: A&P Assessment and Plan (1) Dementia: Code(s): F03.90 - Unspecified dementia without behavioral disturbance Status: Acute Assessment and Plan: (2) Protein calorie malnutrition: Code(s): E46 - Unspecified protein-calorie malnutrition Status: Acute (3) Dental abscess: Code(s): K04.7 - Periapical abscess without sinus Status: Acute Plan 82-year-old male with past medical history significant for gastroesophageal reflux disease,? esophageal stricture,collagenous colitis, chronic diarrhea, chronic anemia, osteoporosis. patient was brought to the emergency room for evaluation due to 's concerns for the patient's confusion and overall decline in the last several months also decreased oral intake 1)Dementia: Likely end stage Based upon his vivid dreams, changing gait, tremors, and progression of memory issues over the past 2-[address] evidence for significant cerebral vascular disease it is likely that he has Lewy body dementia. Await family meeting later today, might be transitioned to hospice Frequent reorientation if possible Bedside sitter present 2)Failure to thrive: Currently on TPN Supplement potassium and phosphorus 3)?Dental Abscess: c/w Vancomycin and zosyn Appreciate ENT recommendations 4)DVT ppx:Heparin SQ 5)Code:Full, await family meeting for later today 6)Dispo:pending improvement, poor floor trader prognosis . Additional Plan Time Spent With Patient Time with patient: 15 - 25 minutes Subjective Date/time seen: 07/03/22 13:01 Interval history: remains agitated, no major change clinically Review of Systems Review of Systems: ROS unobtainable: Yes unobtainable due to medical condition Exam Const: General: alert Nutritional Appearance: cachectic HENMT: Head: normocephalic and atraumatic Neck: Neck: supple Resp: Effort & Inspection: normal respiratory effort Cardio: Rate: regular rate Rhythm: regular rhythm GI: GI Palp: Yes Soft to palpation Psych: Affect: Anxious affect present Objective Data Vital Signs Vital Signs: Vital Signs - 24 hr 07/02/22 14:00 07/02/22 22:00 07/03/22 06:00 Temperature 97.3 F L 97.1 F L 97.2 F L Pulse Rate 104 H 104 H 63 Respiratory Rate 16 18 14 Blood Pressure 117/83 147/82 H 122/72 Pulse Oximetry 97 94 98 Oxygen Delivery 07/03/22 07:45 Temperature Pulse Rate Respiratory Rate Blood Pressure Pulse Oximetry Oxygen Delivery Room Air Intake/Output Intake/Output: Intake & Output 06/30/22 07/01/22 07/02/22 07/03/22 23:59 23:59 23:59 23:59 Intake Total 2500 2150 720 300 Output Total 300 1775 1400 Balance 2200 375 -680 300 Meds/Results Medications: Active Medications Generic Name Dose Route Start Last Admin Trade Name Freq PRN Reason Stop Dose Admin Budesonide 3 mg 06/29/22 09:00 07/03/22 12:46 Budesonide 3 Mg Cap.Sr.24h PO Not Given DAILY LINNEA Dextrose 12.5 gm 06/30/22 11:02 Dextrose 50% 25 Gm/50 Ml Syringe IV PUSH PRN PRN Hypoglycemia Protocol Glucagon 1 mg 06/30/22 11:02 Glucagon For Inj 1 Mg Vial IM PRN PRN Hypoglycemia Protocol Glucose 15 gm 06/30/22 11:02 Glucose Oral Gel 15 Gm Of Glucse In 37.5 Gm Tube PO PRN PRN Hypoglycemia Protocol Hydralazine HCl 10 mg 06/29/22 05:55 Hydralazine Hcl 20 Mg/Ml Vial IV PUSH Q8H PRN Blood Pressure - High sbp =180 Sodium Chloride 1,000 mls @ 100 mls/hr 06/30/22 10:45 07/01/22 23:44 Normal Saline Iv IV CONT 100 mls/hr .Q10H LINNEA Administration Dextrose 1,000 mls @ 100 mls/hr 06/30/22 11:02 Dextrose 5% 1,000 Ml IVPB PRN PRN Hypoglycemia Protocol Dextrose 1,000 mls @ 50 mls/hr 07/02/22 10:12 Dextrose 10% IV CONT .Q20H PRN if PN is interrupted Amino Acids/Electrolytes/Dextrose 2,000 mls @ 80 mls/hr 07/02/22 13:00 07/02/22 14:09 Clinimix E 4.25%/5% Solution IV
--- NOTE | 2022-07-03 13:53 | PCPTNOTE ---
Attempted to see pt. for physical therapy evaluation. Pt.'s family meeting with Hospice consultation today, holding therapy evaluation until after consultation. Will follow.
[2022-07-03 14:00] VITALS: BP 136/78; PULSE 101; RESP 14; TEMP 36.2; O2SAT 100
[2022-07-03] MEDS: FAT EMULSIONS IV 20% 250 ML 20.83 ML IVPB (14:50)
[2022-07-03] MEDS: AMINO ACIDS 4.25%/D5W/LYTES/CA 2,000 ML 80 ML IV CONT (14:50)
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
--- NOTE | 2022-07-21 21:34 | PM.DS ---
DS: Admitting Diagnosis Discharge Date 07/03/22 Admitting Diagnosis Failure to thrive DS: Discharge Diagnosis Discharge Diagnosis (1) Protein calorie malnutrition: Code(s): E46 - Unspecified protein-calorie malnutrition Status: Acute (2) Dementia: Code(s): F03.90 - Unspecified dementia without behavioral disturbance Status: Acute (3) Adult failure to thrive: Code(s): R62.7 - Adult failure to thrive Status: Acute DS: Summary Hospital Course Reason for hospitalization: ' Hospital Course: 82-year-old male with past medical history significant for gastroesophageal reflux disease,? esophageal stricture,collagenous colitis, chronic diarrhea, chronic anemia, osteoporosis. patient was brought to the emergency room for evaluation due to 's concerns for the patient's confusion and overall decline in the last several months also decreased oral intake. His hospital course was complicated with poor PO intake, agitation. Eventually he was transitioned to inpatient hospice. Status at Discharge Cognitive/behavioral status at discharge: Confused, poor Functional status at discharge: bed bound Time Spent with Patient Time attestation: Total time spent providing and/or coordinating discharge services: Time spent: Less than 30 minutes Exam Narrative: Const:?? General: alert? Nu tritional Appearan ce: cachectic HENMT:?? Head: normocephali c and atraumatic Neck:?? Neck: supple Resp:?? Effort & Inspectio n: normal respirat ory effort Cardio:?? Rate: regular rate ? Rhythm: regular rhythm GI:?? GI Palp: Yes Soft to palpation Psych:?? Affect: Anxious af fect present Discharge Plan Discharge Attending physician on discharge: Christina Santacruz Consulting providers: Yanick Salamanca ; Jose Arriaza ; Syed,Katie Rodas ; Anurag Sandoval ; Eric De La Rosa ; Prudencio Millan Discharging Clinician: Christina Santacruz Patient Disposition: Hospice [facility] Inpatient Patient Instructions: Dental Abscess (GEN), Malnutrition (DC) Date of admission: 06/28/22 20:29 Primary Care Provider: Fernando Schultz Admitting Provider: Alfred Hughes V. Attending physician on admission: Christina Santacruz Condition: Guarded Prognosis [facility] Discharge Billing Inpatient Discharge Inpatient Discharge: [address] Hosp D/C 30 Min
== END 2022-07-03 17:04 | disposition hospice, inpatient (51) | DRG 56 ==
LOC: ANHED 20:33 → ANH3MEDSUR 21:39
PROVIDERS: Emergency Medicine; Nurse Practitioner Family; Admitting Provider Internal Medicine; Emergency Provider Emergency Medicine; PCP Internal Medicine; Visit Provider Internal Medicine
DX: G31.83 Neurocognitive disorder with Lewy bodies (principal); E43 Unspecified severe protein-calorie malnutrition; Z68.1 Body mass index [BMI] 19.9 or less, adult; R64 Cachexia; F02.80 Dementia in other diseases classified elsewhere, unspecified severity, without behavioral disturbance, psychotic disturbance, mood disturbance, and anxiety; K04.7 Periapical abscess without sinus; K02.9 Dental caries, unspecified; K52.831 Collagenous colitis; K21.9 Gastro-esophageal reflux disease without esophagitis; R62.7 Adult failure to thrive; M19.90 Unspecified osteoarthritis, unspecified site; D64.9 Anemia, unspecified; J45.909 Unspecified asthma, uncomplicated; M54.59 Other low back pain; G89.29 Other chronic pain; D72.829 Elevated white blood cell count, unspecified; K44.9 Diaphragmatic hernia without obstruction or gangrene; M81.0 Age-related osteoporosis without current pathological fracture; Z90.49 Acquired absence of other specified parts of digestive tract; Z87.891 Personal history of nicotine dependence
CPT/HCPCS: 36415; 70450; 71045; 71250; 74176; 80053; 80202; 81001; 82607; 82948; 83540; 83550; 83605; 83690; 83735; 83921; 84100; 84443; 84466; 84478; 85025; 85610; 85730; 87040; 87086; 93005; 96360; 99285; A9270; J2060; J2543; J3370; J3480; J7030; J7040

== ENCOUNTER 2022-07-03 17:05 | HOS | payer OTHER, MEDICARE, SELFPAY ==
[2022-07-03] MEDS: SODIUM CHLORIDE 0.9% IV 250 ML 30 ML (18:15)
[2022-07-03] MEDS: MORPHINE SULFATE INJ (*CRX) 50 MG in SODIUM CHLORIDE 0.9% IV 95 ML IV CONT (18:16)
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
[2022-07-03 19:30] VITALS: BMI 12.8
[2022-07-03] MEDS: diazePAM INJ (*CRX) 10 MG/2 ML SYRINGE 5 MG IV PUSH (20:56)
[2022-07-03] MEDS: NYSTATIN 100,000 UNITS/ML SUSP 5 ML ORAL.SUSP PO ×2 (20:56→21:13)
[2022-07-03] MEDS: CHLORHEXIDINE GLUCONATE 0.12% ORAL RINSE 473 ML BTL (*BKC) XX ×2 (20:56→21:13)
[2022-07-03] MEDS: PHENobarbitaL sodium (*CRX) 130 MG/ML VIAL 60 MG IV PUSH (21:13)
[2022-07-04] MEDS: SODIUM CHLORIDE 0.9% IV 250 ML 30 ML (02:38)
[2022-07-04] MEDS: diazePAM INJ (*CRX) 10 MG/2 ML SYRINGE 5 MG IV PUSH (05:08)
[2022-07-04] MEDS: PHENobarbitaL sodium (*CRX) 130 MG/ML VIAL 60 MG IV PUSH (05:08)
[2022-07-04] MEDS: NYSTATIN 100,000 UNITS/ML SUSP 5 ML ORAL.SUSP PO (09:42)
[2022-07-04] MEDS: CHLORHEXIDINE GLUCONATE 0.12% ORAL RINSE 473 ML BTL (*BKC) XX (09:42)
--- NOTE | 2022-07-04 15:56 | PM.IMPN ---
Progress Note: A&P Assessment and Plan (1) Palliative care by specialist: Code(s): Z51.5 - Encounter for palliative care Status: Acute Assessment and Plan: Qualifies for inpatient hospice due to uncontrolled agitation requiring continuous IV morphine and scheduled IV sedation as well as p.r.n. sedation for control Morphine 1 milligram/hour and 2 mg every 2 hours p.r.n. IV, phenobarbital 60 mg IV every 8 hours, p.r.n. diazepam 5 mg every 4 hours, p.r.n. along the Pean 5 mg IM (2) Dementia: Code(s): F03.90 - Unspecified dementia without behavioral disturbance Status: Acute Assessment and Plan: Based upon his vivid dreams, changing gait, tremors, and progression of memory issues over the past 2-[address] evidence for significant cerebral vascular disease it is likely that he has Lewy body dementia. (3) Protein calorie malnutrition: Code(s): E46 - Unspecified protein-calorie malnutrition Status: Acute (4) Collagenous colitis: Code(s): K52.831 - Collagenous colitis Status: Acute (5) Chronic midline low back pain: Code(s): M54.5 - Low back pain; G89.29 - Other chronic pain Status: Acute (6) Compression fracture: Status: Acute (7) Disorder of oral cavity: Status: Acute Assessment and Plan: Likely due to neglect of oral hygiene over the past couple of years Swabbed with chlorhexidine and nystatin Subjective Date/time seen: 07/04/22 15:56 Review of Systems Review of Systems: ROS unobtainable: Yes unobtainable due to medical condition Exam Narrative: HEENT: PERRL, sclerae nonicteric, pharyngeal mucosa coated will thick film, teeth with multiple caries and plaque NECK: No JVD CHEST: Clear to auscultation. Normal effort. HEART: NL S1/S2, regular, no murmur ABDOMEN: BS+, soft, nontender, no mass, no bruits EXTREMITIES: No cyanosis, edema, or clubbing NEUROLOGIC: CN intact and symmetric to inspection. MUSCULOSKELETAL: Tone and strength symmetric. PSYCH: Alert. Oriented to person only. Objective Data Vital Signs Vital Signs: Vital Signs - 24 hr 07/03/22 17:45 07/03/22 20:00 07/04/22 08:00 Oxygen Delivery Room Air Room Air Room Air Intake/Output Intake/Output: Intake & Output 07/01/22 07/02/22 07/03/22 07/04/22 23:59 23:59 23:59 23:59 Intake Total 50 Balance 50 Meds/Results Medications: Active Medications Generic Name Dose Route Start Last Admin Trade Name Freq PRN Reason Stop Dose Admin Artificial Tears 0 drop 07/03/22 17:50 Artificial Tears Ophth Soln 15 Ml Bottle EACH EYE Q8H PRN Dry Eye(s) Bisacodyl 10 mg 07/03/22 17:51 Bisacodyl 10 Mg Suppository RECTAL DAILY PRN CONSTIPATION Chlorhexidine Gluconate 5 ml 07/03/22 17:00 07/04/22 09:42 Chlorhexidine Gluconate 0.12% Oral Rinse 473 Ml Btl (*Bkc) XX 5 ml QID LINNEA Administration Diazepam 5 mg 07/03/22 17:46 07/04/22 05:08 Diazepam Inj (*Crx) 10 Mg/2 Ml Syringe IV PUSH 5 mg Q4H PRN Administration RESTLESSNESS Glycopyrrolate 0.1 mg 07/03/22 17:49 Glycopyrrolate Inj (*Sp) 0.2 Mg/Ml Vial IV PUSH Q4H PRN SECRETIONS Morphine Sulfate 50 mg/ Sodium 100 mls @ 2 mls/hr 07/03/22 18:00 07/04/22 13:40 Chloride IV CONT Infused .Q24H LINNEA Infusion 1 MG/HR Morphine Sulfate 2 mg 07/03/22 17:45 Morphine Sulfate (*Crx) 2 Mg/Ml Inj IV PUSH Q2H PRN PAIN/RESTLESSNESS Nystatin 5 ml 07/03/22 17:00 07/04/22 09:42 Nystatin 100,000 Units/Ml Susp 5 Ml Oral.Susp PO 5 ml QID LINNEA Administration Phenobarbital Sodium 60 mg 07/03/22 22:00 07/04/22 05:08 Phenobarbital Sodium (*Crx) 130 Mg/Ml Vial IV PUSH 60 mg Q8HR LINNEA Administration Prochlorperazine Edisylate 10 mg 07/03/22 17:49 Prochlorperazine Edisylate 10 Mg/2 Ml Vial IV PUSH Q6H PRN Nausea And Vomiting
--- NOTE | 2022-07-04 16:38 | P.DN_ITS ---
Discharge Summary Date and Time Date of : 07/04/22 Time of : 13:40 Provider Pronounced By: Le Washington RN Probable Cause of Probable Cause of : Dementia of unspecified etiology with behaviors Summary Hospital Course: Admitted to inpatient hospice service due to uncontrolled agitation. Medication was titrated to comfort. Mr. Syed peacefully. Additional Data Confirmation of as documented by pronouncing clinician: Pupillary Reflex, Palpable Pulses, Response to Stimuli, Heart Tones and Breath Sounds Name of Provider Notified: Dr. Arriaza Time Provider Notified: 13:40 Provider Requests Autopsy: No Family Requests Autopsy: No [employer] Notified: Yes Date [facility] Notified of : 07/04/22 Time [facility] Notified of : 14:10
== END 2022-07-04 13:40 | disposition expired | DRG 951 ==
LOC: ANH3MEDSUR 17:12
PROVIDERS: Admitting Provider Internal Medicine; PCP Internal Medicine; Visit Provider Internal Medicine
DX: Z51.5 Encounter for palliative care (principal); E46 Unspecified protein-calorie malnutrition; F02.81 Dementia in other diseases classified elsewhere, unspecified severity, with behavioral disturbance; G31.83 Neurocognitive disorder with Lewy bodies; N20.0 Calculus of kidney; D64.9 Anemia, unspecified; K52.831 Collagenous colitis; K22.2 Esophageal obstruction; K21.9 Gastro-esophageal reflux disease without esophagitis; K44.9 Diaphragmatic hernia without obstruction or gangrene; K02.9 Dental caries, unspecified; M81.0 Age-related osteoporosis without current pathological fracture; M19.90 Unspecified osteoarthritis, unspecified site; M54.50 Low back pain, unspecified; G89.29 Other chronic pain; Z87.891 Personal history of nicotine dependence
CPT/HCPCS: A4248; A9270; J2270; J2560; J3360; J7050